=== PATIENT | male | born 1965 | race Caucasian/White ===

== ENCOUNTER 2024-04-16 15:00 | Outpatient (CLI) | payer MEDICAID, SELFPAY ==
[2024-04-16 18:40] LABS: Basophils % 0.6 % (0.1-2.0); Eosinophils # 0.2 K/mm3 (0.0-0.4); Eosinophils % 2.9 % (0.1-12.0); Hematocrit 49.5 % (42.0-52.0); Hemoglobin 16.2 g/dL (14.1-18.0); Lymphocytes # 2.1 K/mm3 (0.7-4.5); Lymphocytes % 30.5 % (10-50); Mean Corpuscular HGB Conc 32.7 g/dL (31.8-35.4); Mean Corpuscular Hemoglobin 30.8 pg (27.0-31.2); Mean Corpuscular Volume 94.1 fl (80-94); Mean Platelet Volume 8.7 fl (7.4-10.4); Monocytes # 0.3 K/mm3 (0.1-1.0); Monocytes % 4.5 % (1.7-9.3); Neutrophils # 4.2 K/mm3 (1.8-7.8); Neutrophils % 61.6 % (37.0-80.0); Platelet Count 227 K/mm3 (142-424); Red Blood Count 5.26 M/mm3 (4.60-6.20); Red Cell Distribution Width 14.3 % (11.5-17.5); White Blood Count 6.8 K/mm3 (4.8-10.8)
[2024-04-16 19:11] LABS: Alanine Aminotransferase 12 U/L (12-78); Albumin Level 3.8 g/dl (3.5-5.0); Albumin/Globulin Ratio 1.7 (1.1-1.8); Alkaline Phosphatase 52 U/L (38-126); Anion Gap 10.6 mEq/L (5-15); Aspartate Amino Transferase 20 U/L (17-59); Bilirubin,Total 0.4 mg/dl (0.2-1.3); Blood Urea Nitrogen 13 mg/dl (9-20); Calcium 8.5 mg/dl (8.4-10.2); Carbon Dioxide 29 mmol/L (22.0-30.0); Chloride 103 mmol/L (98-107); Estimated Glomerular Filt Rate 52 ml/min (>60); GFR (African American) 63 ML/MIN (>60); Globulin 2.3 g/dL (1.3-3.2); Glucose 91 mg/dl (74-100); HDL Cholesterol 36 mg/dl (40-60); Potassium 4.6 mmoL/L (3.5-5.1); Sodium 138 mmol/L (136-145); Total Protein,Serum 6.1 g/dl (6.3-8.2)
[2024-04-16 19:15] LABS: Chol/HDL Ratio 4.4 (1-3.5); Cholesterol 157 mg/dl (140-200); Triglycerides 130 mg/dl (30-150); VLDL Cholesterol 26 mg/dL (0-40)
[2024-04-16 19:22] LABS: C-Reactive Protein 11.4 mg/L (0-4); Direct LDL Cholesterol 109.83 mg/dL (100-129)
[2024-04-16 19:35] LABS: 25-OH Vitamin D, Total < 12.8 ng/mL (30-100)
[2024-04-16 19:36] LABS: Hemoglobin A1C 5.5 % (4.0-6.0)
[2024-04-16 19:44] LABS: Prostate Specific Ag Screen 0.6 ng/ml (0.0-4.0); Thyroid Stimulating Hormone 2.22 uIU/mL (0.465-4.68)
[2024-04-16 20:20] LABS: Vitamin B12 207 pg/mL (239-931)
[2024-04-16 20:21] LABS: Folate 2.27 ng/mL
[2024-04-16 21:13] LABS: HIV (1&2) Antibody Rapid NONREACTIVE (NONREACTIVE)
[2024-04-20 18:06] LABS: HBsAg Screen Negative (Negative); HCV Ab Reactive (Non Reactive); Hep A Ab, IGM Negative (Negative); Hep B Core Ab, IgM Negative (Negative)
== END 2024-04-16 23:59 | disposition home or self-care (01) ==
LOC: LAB.DROPOF 04-17 09:25
PROVIDERS: PCP Internal Medicine; Visit Provider Internal Medicine
DX: Z00.00 Encounter for general adult medical examination without abnormal findings (principal); Z91.89 Other specified personal risk factors, not elsewhere classified; E66.01 Morbid (severe) obesity due to excess calories; Z68.42 Body mass index [BMI] 45.0-49.9, adult; R53.83 Other fatigue; Z12.5 Encounter for screening for malignant neoplasm of prostate; Z13.1 Encounter for screening for diabetes mellitus; F11.90 Opioid use, unspecified, uncomplicated
CPT/HCPCS: 80050; 80053; 80061; 80074; 82306; 82607; 82746; 83036; 84443; 85025; 86140; 87389; G0103

== ENCOUNTER 2024-06-18 15:38 | Outpatient (CLI) | payer MEDICAID, SELFPAY ==
--- NOTE | 2024-06-18 15:39 | CT_ITS ---
FINAL REPORT TECHNIQUE: Axial CT images of the chest were obtained without contrast. Coronal and sagittal reconstructed images were obtained and reviewed. Low-dose protocol was utilized. This study was performed with techniques to keep radiation doses as low as reasonably achievable (ALARA). Individualized dose reduction techniques using automated exposure control or adjustment of mA and/or kV according to the patient's size were employed. CLINICAL HISTORY: lung cancer screening current smoker 2-3 cigarettes per day x 30+ years COMPARISON: None FINDINGS: CT CHEST LOW DOSE SCREENING DOSE: CTDIvol: 2.9 mGy, DLP: 111.51 mGy*cm No acute lung disease is present . There is an oval nodule in the right lower lobe measuring 10 x 8 mm seen on image #52. There is a small area of ground-glass opacity within the left lateral portion of the peripheral left upper lobe seen on image #32, probably scarring or inflammatory. No pleural or pericardial effusion is seen . No adenopathy or mass lesion is present . Gynecomastia is noted. IMPRESSION: Right lower lobe nodule. LUNG RADS CATEGORY 4B RECOMMENDATION: PET/CT Reviewed, Interpreted and Dictated by Radu Webber MD Transcribed by Jyotsna Hairston Authenticated and . [facility]
== END 2024-06-18 23:59 | disposition home or self-care (01) ==
LOC: RAD 15:39
PROVIDERS: PCP Internal Medicine; Visit Provider Internal Medicine
DX: F17.210 Nicotine dependence, cigarettes, uncomplicated (principal)
CPT/HCPCS: 71271

== ENCOUNTER 2024-10-29 09:19 | Outpatient (CLI) | payer MEDICAID, SELFPAY ==
--- OUTSIDE RECORDS SUMMARY | 2024-10-16 19:50 | XMS_ITS | Encounter Summary ---
Author Organization [employer] Address [address] [place] [id number] Care Team Providers Care Manager Strategic Development Name Role Phone Herminio Prather DO Primary Care Provider [phone] Reason for Visit * Reason Comments Shortness of Breath Pt c/o SOA and produ ctive cough x 4 days. Pt reports he fell yesterday from coughing so hard he passed out Encounter Details Date Type Department Care Team (Late st Contact Info) Description 10/16/2024 7:50 PM EDT - 10/16/2024 10:22 PM EDT Emergency [facility] Emergency Department [address] [place] [id number] [place] [address] [place], [place] [id number] Bronchitis (Primary Dx); Syncope, unspecified syncope type; Bradycardia; Abrasion; Sprain and strain; Chronic kidney disease, unspecified CKD stage; Chronic pansinusitis Discharge Disposition: Left Against Medical Advice Social History Tobacco Use Types Packs/Day Years Used Date Smoking Tobacco: Every Day Cigarettes Smokeless Tobacco: Never Alcohol Use Standard Drinks/Week Comments Never 0 (1 standard drink = 0.6 oz pur e alcohol) Sex and Gender Information Value Date Recorded Sex Assigned at Male 11/07/2021 11:00 AM CDT Legal Sex Male 11:00 AM CDT Gender Identity Male 11/07/2021 11:00 AM CDT Sexual Orientation Not on file documented as of this encounter Last Filed Vital Signs Vital Sign Reading Time Taken Comments Blood Pressure 151/70 10/16/2024 8:55 PM EDT Pulse 62 10/16/2024 9:30 PM EDT Temperature 36.8 C (98.2 F) 10/16/2024 7:46 PM EDT Respiratory Rate 23 10/16/2024 7:45 PM EDT Oxygen Saturation 96% 10/16/2024 9:30 PM EDT Inhaled Oxygen Concentration - - Weight 122.5 kg (270 lb) 10/16/2024 7:45 PM EDT Height 170.2 cm (5' 7 ) 10/16/2024 7:45 PM EDT Body Mass Index 42.29 10/16/2024 7:45 PM EDT documented in this encounter Discharge Instructions * Discharge Instructions* Dedra Mart MD - 10/16/2024 9:57 PM EDT Please return as soon as you can. You are at high risk of severe injury (neck fracture, paralysis, other fracture. You are at high risk of severe heart arrythymia (beating badly) which could kill you You MUST NOT DRIVE until you are cleared by a heart Dr. documented in this encounter Medications at Time of Discharge benzonatate (TESSALON) 200 MG capsule Take 1 capsule (200 mg total) by mouth 3 (three) times daily as needed for cough for up to 7 days. 20 capsule 10/16/2024 10/23/2024 documented as of this encounter ED Notes * Dedra Mart MD - 10/16/2024 7:43 PM EDT Images from the original note were not included. Subjective Chief Complaint: Shortness of Breath (Pt c/o SOA and productive cough x 4 days. Pt reports he fell yesterday from coughing so hard he passed out ) Patient is a 59-year-old male here today for cough and injuries after a fall. He notes a cough thatis intermittently productive for the past 4-5 days. Last night he had a syncopal episode provoked by excessive coughing. He injured his face, neck, right wrist, and left knee. Has contusion so his nose and forehead. Notes his neck is sore, right wrist hurts to use with his walker, and pain when bear ing weight on his left knee. Use the walker for arthritic pain to his right hip. Denies current chest pain. Patient History Past Medical History: Diagnosis Date CHF (congestive heart failure) ([facility]) Chronic pain COPD (chronic obstructive pulmonary disease) ([facility]) Past Surgical History: Procedure Laterality Date JOINT REPLACEMENT No family history on file. Social History Tobacco Use Smoking status: Every Day Types: Cigarettes Smokeless tobacco: Never Substance Use Topics Alcohol use: Never I reviewed the HPI, ROS and PFSH documentation recorded by others in the medical record and supplemented my note as needed. Review of Systems Review of Systems All other systems reviewed and are negative. Physical Exam Vitals: 10/16/24 2115 10/16/240 10/16/24212410/16/242129 BP: Pulse: 58 68 72 62 Resp: Temp: SpO2: 95% 92% 95% 96% Weight: Height: Physical Exam Vitals and nursing note reviewed. Constitutional: General: He is not in acute distress. Appearance: He is well-developed and normal weight. He is not ill-appearing or toxic-appearing. Interventions: He is not intubated. HENT: Head: Normocephalic. Contusion present. Nose: Nose normal. Comments: No septal hematoma Abrasions noted Neck: Comments: No midline tenderness Cardiovascular: Rate and Rhythm: Normal rate and regular rhythm. Pulses: Normal pulses. Heart sounds: Normal heart sounds. Pulmonary: Effort: Pulmonary effort is normal. No bradypnea, accessory muscle usage or respiratory distress. He is not intubated. Breath sounds: Normal breath sounds. No stridor. No decreased breath sounds. Comments: + harsh cough Abdominal: General: Abdomen is flat. Bowel sounds are normal. There is no distension. Palpations: Abdomen is soft. Tenderness: There is no abdominal tenderness. Musculoskeletal: General: Normal range of motion. Right wrist: Tenderness present. Cervical back: Neck supple. No rigidity or tenderness. Left knee: Tenderness present. Skin: General: Skin is warm and dry. Capillary Refill: Capillary refill takes less than 2 seconds. Comments: Abrasions on face (nose and forehead) with eschar Neurological: General: No focal deficit present. Mental Status: He is alert and oriented to person, place, and time. Psychiatric: Mood and Affect: Mood normal. Behavior: Behavior normal. Neurological Exam Mental Status Alert. Oriented to person, place, and time. Ortho Exam ED Course & MDM Medications sodium chloride flush 10 mL (has no administration in time range) benzonatate (TESSALON) capsule 200 mg (has no administration in time range) Results for orders placed or performed during the hospital encounter of 10/16/24 CBC with automated diff Result Value Ref Range WBC 9.2 (H) 4.2 - 9.1 K/??L RBC 4.75 4.63 - 6.08 M/??L Hemoglobin 14.6 13.7 - 17.5 GM/DL Hematocrit 43.3 40.1 - 51.0 % MCV 91 79 - 92 fL MCH 30.7 25.7 - 32.2 pg MCHC 33.7 32.3 - 36.5 GM/DL RDW 13.4 11.6 - 14.4 % Platelets 277 140 - 375 K/CU MM MPV 9.4 9.4 - 12.4 fL % Neutros 66 34 - 68 % % Lymphs 24 22 - 53 % % Monos 5 5 - 12 % % Eos 3 1 - 7 % % Baso 0 0 - 1 % NRBC Absolute <0.01 0 - 0.012 K/ul # Neutros 6.10 (H) 1.78 - 5.38 K/??L # Lymphs 2.25 1.32 - 3.57 K/??L # Monos 0.49 0.30 - 0.82 K/??L # Eos 0.25 0.04 - 0.54 K/??L # Baso 0.03 0.01 - 0.08 K/??L Immature Granulocytes-Relative 1.10 (H) 0.01 - 0.43 % # IG 0.10 (H) 0.00 - 0.03 K/uL Comprehensive metabolic panel Result Value Ref Range Sodium 134 (L) 136 - 145 meq/L Potassium 3.8 3.4 - 5.1 meq/L Chloride 101 98 - 112 meq/L CO2 25 22 - 29 meq/L Calcium 8.5 8.4 - 10.2 mg/dL Glucose 104 82 - 115 mg/dL BUN 12.2 8.4 - 25.7 mg/dL Creatinine 1.39 (H) 0.72 - 1.25 mg/dL BUN/Creatinine 9 8 - 20 eGFR (mL/min/1.73m2) 58 (L) >=60 mL/min/1.73m2 Albumin 3.0 (L) 3.5 - 5.0 g/dL Alkaline Phosphatase 52 40 - 150 U/L ALT 8 <=45 U/L AST 15 11 - 34 U/L Total Bilirubin 0.5 0.2 - 1.2 mg/dL Protein, Total 7.5 6.4 - 8.3 g/dL Globulin 4.5 (H) 2.5 - 4.1 g/dL Anion Gap 12 4 - 12 A/G Ratio 0.7 0.7 - 1.9 Osmolality Calc 268.4 mOsm/kg Magnesium Result Value Ref Range Magnesium 2.2 1.6 - 2.6 mg/dL High Sensitivity Troponin I Result Value Ref Range Troponin I High Sensitivity (pg/mL) <5.0 <=35 pg/mL Lactic Acid with reflex (SJ) Result Value Ref Range Lactic Acid Level (mmol/L) 0.9 0.5 - 2.2 mmol/L XR chest 1 view portable / bedside Final Result Unremarkable portable chest. XR wrist 2 views right Final Result Degenerative changes. No acute bony abnormality. Images reviewed, interpreted, and dictated by Jose Webber MD XR KNEE 3 VIEWS LEFT Non-Weight Bearing Final Result Degenerative changes. No acute bony abnormality. Images reviewed, interpreted, and dictated by Jose Webber MD CT maxillofacial without IV contrast Final Result 1. Chronic appearing mildly displaced right nasal fracture. 2. No definite acute facial fracture. 3. Chronic pansinusitis. This study was performed using dose reduction techniques to achieve radiation exposure as low as reasonably achievable (ALARA). Images reviewed, interpreted, and dictated by Jose Webber MD CT cervical spine without contrast Final Result Negative CT evaluation of the cervical spine for acute bony injury. Moderate diffuse degenerative changes. This study was performed using dose reduction techniques to achieve radiation exposure as low as reasonably achievable (ALARA). Images reviewed, interpreted, and dictated by Jose Webber MD CT brain without IV contrast Final Result 1. No acute intracranial abnormality. 2. Chronic sinusitis greater on the left. This study was performed using dose reduction techniques to achieve radiation exposure as low as reasonably achievable (ALARA) Images reviewed, interpreted, and dictated by Jose Webber MD Procedures Medical Decision Making Diff dx: dysrhythmia, vagal syncope, bradycardia, abrasions, contusions cervical inj, pneumonia, bronchitis, CHF, electrolyte imbalance, poor social situation MDM Pt had a bradycardic episode here to 37 NOT associated with coughing or syncope He has syncope sitting This makes him much higher risk He drove himself here! Pt refuses to stay I tried for over 10 minutes to get him to stay He has a poor social situation, he has a dog someone else has the dog right now but he does not feel the dog is being properly watched etc He told me he would not drive. He could call some one to get him. I have STRESSED NO DRIVING Amount and/or Complexity of Data Reviewed Labs: ordered. Radiology: ordered and independent interpretation performed. Decision-making details documented in ED Course. Details: CXR no dense inf Wrist x ray djd CT neck djd, no fx CT face sinusitis L >R Head st no large bleed ECG/medicine tests: independent interpretation performed. Details: SR rate 86 Low voltage (old) Qtc nl No STEMI No sig change from 05/05 Risk Prescription drug management. Assessment & Plan Clinical Impression Diagnosis Comment Added By Time Added Bronchitis Dedra Mart MD 10/16/2024 10:01 PM Syncope, unspecified syncope type Dedra Mart MD 10/16/2024 10:01 PM Bradycardia Dedra Mart MD 10/16/2024 10:02 PM Abrasion Dedra Mart MD 10/16/2024 10:02 PM Sprain and strain R wrist, L knee, neck Dedra Mart MD 10/16/2024 10:02 PM Chronic kidney disease, unspecified CKD stage Dedra Mart MD 10/16/2024 10:05 PM Chronic pansinusitis Dedra Mart MD 10/16/2024 10:06 PM Disposition AMA [4] - 10/16/2024 9:56 PM New Prescriptions BENZONATATE (TESSALON) 200 MG CAPSULE Take 1 capsule (200 mg total) by mouth 3 (three) times daily as needed for cough for up to 7 days. Electronically Signed By Dedra Mart MD 10/16/242211 documented in this encounter Plan of Treatment Not on file documented as of this encounter Procedures Procedure Name Priority Date/Time Associated Diagnosis Comments BLOOD CULTURE STAT 10/16/2024 9:29 PM EDT LACTIC ACID WITH REFLEX STAT 10/16/2024 9:22 PM EDT BLOOD CULTURE STAT 10/16/2024 9:22 PM EDT CBC W/ AUTO DIFF STAT 10/16/2024 8:41 PM EDT HIGH SENSITIVITY TROPONIN I STAT 10/16/2024 8:41 PM EDT PROBNP Add-On 10/16/2024 8:41 PM EDT MAGNESIUM STAT 10/16/2024 8:41 PM EDT COMPREHENSIVE METABOLIC PANEL STAT 10/16/2024 8:41 PM EDT XR WRIST 2 VIEWS RIGHT STAT 8:31 PM EDT XR CHEST 1 VIEW PORTABLE / BEDSIDE STAT 10/16/2024 8:31 PM EDT XR KNEE 3 VIEWS LEFT STAT 10/16/2024 8:[address] MAXILLOFACIAL WITHOUT IV CONTRAST STAT 10/16/2024 8:[address] CERVICAL SPINE WITHOUT IV CONTRAST STAT 10/16/2024 8:[address] BRAIN WITHOUT IV CONTRAST STAT 10/16/2024 8:09 PM EDT EKG-SCANNED 10/16/2024 documented in this encounter Results * Blood Culture (10/16/2024 9:29 PM EDT) Result No growth in 5 days 10/21/2024 7:12 AM EDT [facility] Blood Venipuncture / Unknown 10/16/2024 9:29 PM EDT 10/16/2024 9:37 PM EDT us Dedra Mart MD MICROBIOLOGY - GENERAL ORDERABLE S Final Result Performing Organization Address [facility]/ZIP Co de Phone Number [facility] [address] [phone] * Blood Culture (10/16/2024 9:22 PM EDT) Result No growth in 5 days 10/21/2024 10:02 PM EDT [facility] Blood Venipuncture / Unknown 10/16/2024 9:22 PM EDT 10/16/2024 9:36 PM EDT us Dedra Mart MD MICROBIOLOGY - GENERAL ORDERABLE S Final Result Performing Organization Address [facility] Co de Phone Number [facility] [address] [phone] * Lactic Acid with reflex (SJ) (10/16/2024 9:22 PM EDT) Lactic Acid Level (mmol/L) 0.9 0.5 - 2.2 mmol/L 10/16/2024 10:03 PM EDT [facility] Blood Venipuncture / Unknown 10/16/2024 9:22 PM EDT 10/16/2024 9:37 PM EDT us Dedra Mart MD LAB BLOOD ORDERABLES Final Resul t Performing Organization Address City/[facility]/ZIP Co de Phone Number [facility] [address] [phone] * PROBNP (10/16/2024 8:41 PM EDT) ProBNP (pg/mL) 65 16 - 452 pg/mL 10/16/2024 10:55 PM EDT [facility] Blood Venipuncture / Unknown 10/16/2024 8:41 PM EDT 10/16/2024 8:57 PM EDT Narrative [facility] - 10/16/2024 10:55 PM EDT As of October 01, 2024: NT-ProBNP is a new test on our [employer] Alinity Immunoassay analyzer. Please review new age and gender specific reference ranges. us Dedra Mart MD LAB BLOOD ORDERABLES Final Resul t Performing Organization Address [facility] Co de Phone Number [facility] [address] [phone] * High Sensitivity Troponin I (10/16/2024 8:41 PM EDT) Troponin I High Sensitivity (pg/mL) <5.0 <=35 pg/mL 10/16/2024 9:28 PM EDT [facility] Blood Venipuncture / Unknown 10/16/2024 8:41 PM EDT 10/16/2024 8:57 PM EDT Narrative [facility] - 10/16/2024 9:28 PM EDT Applicable to [facility] only. Effective August 04 the lab will begin using a new chemistry analyzer. HsTroponin methodology, reference ranges and critical values have changed. us Henry Chaidez APRN LAB BLOOD ORDERABLES Final Resu lt Performing Organization Address [facility] Co de Phone Number [facility] [address] [phone] * Magnesium (10/16/2024 8:41 PM EDT) [facility] Magnesium 2.2 1.6 - 2.6 mg/dL 10/16/2024 9:23 PM EDT [facility] Blood Venipuncture / Unknown 10/16/2024 8:41 PM EDT 10/16/2024 8:57 PM EDT us Henry Chaidez APRN LAB BLOOD ORDERABLES Final Resu lt Performing Organization Address City/[facility]/ZIP Co de Phone Number [facility] [address] [phone] * (ABNORMAL) Comprehensive metabolic panel (10/16/2024 8:41 PM EDT) Sodium 134(L) 136 - 145 meq/L 10/16/2024 9:23 PM T [facility] Potassium 3.8 3.4 - 5.1 meq/L 10/16/2024 9:23 PM [facility] Chloride 101 98 - 112 meq/L 10/16/2024 9:23 PM [facility] CO2 25 22 - 29 meq/L 10/16/2024 9:23 PM [facility] Calcium 8.5 8.4 - 10.2 mg/dL 10/16/2024 9:23 PM [facility] Glucose 104 82 - 115 mg/dL 10/16/2024 9:23 PM [facility] BUN 12.2 8.4 - 25.7 mg/dL 10/16/2024 9:23 PM [facility] Creatinine 1.39(H) 0.72 - 1.25 mg/dL 10/16/2024 9:23 PM [facility] BUN/Creatinine 9 8 - 20 10/16/2024 9:23 PM [facility] eGFR (mL/min/1.73m2) 58(L) >=60 mL/min/1. 73m2 10/16/2024 9:23 PM [facility] Albumin 3.0(L) 3.5 - 5.0 g/dL 10/16/2024 9:23 PM [facility] Alkaline Phosphatase 52 40 - 150 U/L 10/16/2024 9:23 PM [facility] ALT 8 <=45 U/L 10/16/2024 9:23 PM [facility] Comment: ALT2 reagent used for testing does not contain P5P supplementation and therefore may miss ALT elevations in patients with B6 deficiency. This population may be as high as 10% in the [place], with risk factors including malabsorption, drug interactions, and alcoholic hepatitis. AST 15 11 - 34 U/L 10/16/2024 9:23 PM [facility] Comment: AST2 reagent used for testing does not contain P5P supplementation and therefore may miss AST elevations in patients with B6 deficiency. This population may be as high as 10% in the [place], with risk factors including malabsorption, drug interactions, and alcoholic hepatitis. Total Bilirubin 0.5 0.2 - 1.2 mg/dL 10/16/2024 9:23 PM EDT [facility] Protein, Total 7.5 6.4 - 8.3 g/dL 10/16/2024 9:23 PM EDT [facility] Globulin 4.5(H) 2.5 - 4.1 g/dL 10/16/2024 9:23 PM EDT [facility] Anion Gap 12 4 - 12 10/16/2024 9:23 PM EDT [facility] A/G Ratio 0.7 0.7 - 1.9 10/16/2024 9:23 PM EDT [facility] Osmolality Calc 268.4 mOsm/kg 9:23 PM EDT [facility] Blood Venipuncture / Unknown 10/16/2024 8:41 PM EDT 10/16/2024 8:57 PM EDT us Henry Chaidez APRN LAB BLOOD ORDERABLES Final Resu lt [facility] [address] [phone] * (ABNORMAL) CBC with automated diff (10/16/2024 8:41 PM EDT) WBC 9.2(H) 4.2 - 9.1 K/ L 10/16/2024 8:59 PM EDT [facility] RBC 4.75 4.63 - 6.08 M/ L 10/16/2024 8:59 PM EDT [facility] Hemoglobin 14.6 13.7 - 17.5 GM/DL 10/16/2024 8:59 PM EDT [facility] Hematocrit 43.3 40.1 - 51.0 % 10/16/2024 8:59 PM EDT [facility] MCV 91 79 - 92 fL 10/16/2024 8:59 PM EDT [facility] MCH 30.7 25.7 - 32.2 pg 10/16/2024 8:59 PM EDT [facility] MCHC 33.7 32.3 - 36.5 GM/DL 10/16/2024 8:59 PM EDT [facility] RDW 13.4 11.6 - 14.4 % 10/16/2024 8:59 PM EDT [facility] Platelets 277 140 - 375 K/CU MM 10/16/2024 8:59 PM EDT [facility] MPV 9.4 9.4 - 12.4 fL 10/16/2024 8:59 PM EDT [facility] % Neutros 66 34 - 68 % 10/16/2024 8:59 PM EDT [facility] % Lymphs 24 22 - 53 % 10/16/2024 8:59 PM EDT [facility] % Monos 5 5 - 12 % 10/16/2024 8:59 PM EDT [facility] % Eos 3 1 - 7 % 10/16/2024 8:59 PM EDT [facility] % Baso 0 0 - 1 % 10/16/2024 8:59 PM EDT [facility] NRBC Absolute <0.01 0 - 0.012 K/ul 10/16/2024 8:59 PM EDT [facility] # Neutros 6.10(H) 1.78 - 5.38 K/ L 10/16/2024 8:59 PM EDT [facility] # Lymphs 2.25 1.32 - 3.57 K/ L 10/16/2024 8:59 PM EDT [facility] # Monos 0.49 0.30 - 0.82 K/ L 10/16/2024 8:59 PM EDT [facility] # Eos 0.25 0.04 - 0.54 K/ L 10/16/2024 8:59 PM EDT [facility] # Baso 0.03 0.01 - 0.08 K/ L 10/16/2024 8:59 PM EDT [facility] Immature Granulocytes-Re lative 1.10(H) 0.01 - 0.43 % 10/16/2024 8:59 PM EDT [facility] # IG 0.10(H) 0.00 - 0.03 K/uL 10/16/2024 8:59 PM EDT [facility] Blood Venipuncture / Unknown 10/16/2024 8:41 PM EDT 10/16/2024 8:57 PM EDT Narrative [facility] - 10/16/2024 8:59 PM EDT When CBC w/ Auto Diff is ordered the lab will add a Manual Differential as a quality check at no additional charge if: Lymphocytes greater than seventy five percent with normal or increased WBC Monocytes greater than Fifteen percent Basophil greater than four percent Bands >10% or several immature myeloids are seen on scan Blast? Flag noted Atypical Lymph flag noted Henry Chaidez APRN LAB BLOOD ORDERABLES Final Resu lt [facility] [address] [phone] * XR wrist 2 views right (10/16/2024 8:31 PM EDT) Anatomical Region Laterality Modality Wrist X-Ray 10/16/2024 9:32 PM EDT Impressions 10/16/2024 9:32 PM EDT Degenerative changes. No acute bony abnormality. Images reviewed, interpreted, and dictated by Jose Webber MD Narrative 10/16/2024 9:32 PM EDT RIGHT WRIST 2 VIEW HISTORY: Pain FINDINGS: Two views show no evidence of an acute, displaced fracture or dislocation of the visualized bony architecture. Mild degenerative joint disease is present. Procedure Note Jose Webber MD - 10/16/2024 RIGHT WRIST 2 VIEW HISTORY: Pain FINDINGS: Two views show no evidence of an acute, displaced fracture or dislocation of the visualized bony architecture. Mild degenerative joint disease is present. IMPRESSION: Degenerative changes. No acute bony abnormality. Images reviewed, interpreted, and dictated by Jose Webber MD Henry Chaidez APRN IMG DIAGNOSTIC IMAGING ORDERABL ES Final Result * XR chest 1 view portable / bedside (10/16/2024 8:31 PM EDT) Anatomical Region Laterality Modality X-Ray 10/16/2024 9:49 PM EDT Impressions 10/16/2024 9:49 PM EDT Unremarkable portable chest. Narrative 10/16/2024 9:49 PM EDT CHEST ONE VIEW HISTORY: Shortness of breath COMPARISON: 05/02/2024 FINDINGS: Portable view of the chest demonstrates the lungs to be grossly clear. There is no evidence of effusion, pneumothorax or other significant pleural disease. The mediastinum is unremarkable. The heart size is normal. Procedure Note Jose Webber MD - 10/16/2024 CHEST ONE VIEW HISTORY: Shortness of breath COMPARISON: 05/02/2024 FINDINGS: Portable view of the chest demonstrates the lungs to be grossly clear. There is no evidence of effusion, pneumothorax or other significant pleural disease. The mediastinum is unremarkable. The heart size is normal. IMPRESSION: Unremarkable portable chest. Henry Chaidez [facility] ES Final Result * XR KNEE 3 VIEWS LEFT Non-Weight Bearing (10/16/2024 8:29 PM EDT) Anatomical Region Laterality Modality Knee X-Ray 10/16/2024 9:28 PM EDT Impressions 10/16/2024 9:30 PM EDT Degenerative changes. No acute bony abnormality. Images reviewed, interpreted, and dictated by Jose Webber MD Narrative 10/16/2024 9:30 PM EDT LEFT KNEE THREE VIEWS HISTORY: Pain. FINDINGS: Three views show no evidence of an acute, displaced fracture or dislocation of the visualized bony architecture. Severe tricompartment degenerative joint disease is present. Small joint effusion is noted. Procedure Note Jose Webber MD - 10/16/2024 LEFT KNEE THREE VIEWS HISTORY: Pain. FINDINGS: Three views show no evidence of an acute, displaced fracture or dislocation of the visualized bony architecture. Severe tricompartment degenerative joint disease is present. Small joint effusion is noted. IMPRESSION: Degenerative changes. No acute bony abnormality. Images reviewed, interpreted, and dictated by Jose Webber MD Henry Chaidez APRN [facility] ORDERABL ES Final Result * CT maxillofacial without IV contrast (10/16/2024 8:10 PM EDT) Anatomical Region Laterality Modality Computed Tomogra phy (CT) 10/16/2024 8:48 PM EDT Impressions 10/16/2024 8:55 PM EDT 1. Chronic appearing mildly displaced right nasal fracture. 2. No definite acute facial fracture. 3. Chronic pansinusitis. This study was performed using dose reduction techniques to achieve radiation exposure as low as reasonably achievable (ALARA). Images reviewed, interpreted, and dictated by Jose Webber MD Narrative 10/16/2024 8:[address] FACE HISTORY: Facial trauma, blunt, pain. TECHNIQUE: Thin section axial CT with coronal reconstructions. FINDINGS: Right nasal fracture is seen, favor chronic. No fracture is seen of the maxillary sinuses or orbits. TMJs are intact. Pansinusitis is present having a chronic appearance, greater on left. Procedure Note Jose Webber MD - 10/16/2024 CT FACE HISTORY: Facial trauma, blunt, pain. TECHNIQUE: Thin section axial CT with coronal reconstructions. FINDINGS: Right nasal fracture is seen, favor chronic. No fracture is seen of the maxillary sinuses or orbits. TMJs are intact. Pansinusitis is present having a chronic appearance, greater on left. IMPRESSION: 1. Chronic appearing mildly displaced right nasal fracture. 2. No definite acute facial fracture. 3. Chronic pansinusitis. This study was performed using dose reduction techniques to achieve radiation exposure as low as reasonably achievable (ALARA). Images reviewed, interpreted, and dictated by Jose Webber MD Henry Chaidez APRN [facility] CT ORDERABLES Final Result * CT cervical spine without contrast (10/16/2024 8:10 PM EDT) Anatomical Region Laterality Modality C-spine, Neck Computed Tomogra phy (CT) 10/16/2024 8:44 PM EDT Impressions 10/16/2024 8:[address] evaluation of the cervical spine for acute bony injury. Moderate diffuse degenerative changes. This study was performed using dose reduction techniques to achieve radiation exposure as low as reasonably achievable (ALARA). Images reviewed, interpreted, and dictated by Jose Webber MD Narrative 10/16/2024 8:[address] CERVICAL SPINE HISTORY: Neck trauma, uncomplicated (NEXUS/CCR neg) (Age 16-64y), pain. TECHNIQUE: Thin section axial CT with sagittal and coronal reconstructions. FINDINGS: No fracture is present. Alignment is normal. No bony canal stenosis is seen. Moderate spondylosis and multilevel degenerative disc disease is noted. Multilevel bony neural foraminal narrowing is seen. Procedure Note Jose Webber MD - 10/16/2024 CT CERVICAL SPINE HISTORY: Neck trauma, uncomplicated (NEXUS/CCR neg) (Age 16-64y), pain. TECHNIQUE: Thin section axial CT with sagittal and coronal reconstructions. FINDINGS: No fracture is present. Alignment is normal. No bony canal stenosis is seen. Moderate spondylosis and multilevel degenerative disc disease is noted. Multilevel bony neural foraminal narrowing is seen. IMPRESSION: Negative CT evaluation of the cervical spine for acute bony injury. Moderate diffuse degenerative changes. This study was performed using dose reduction techniques to achieve radiation exposure as low as reasonably achievable (ALARA). Images reviewed, interpreted, and dictated by Jose Webber MD Henry Chaidez APRN [facility] [place] Final Result * CT brain without IV contrast (10/16/2024 8:09 PM EDT) Anatomical Region Laterality Modality Brain, Head Computed Tomogra phy (CT) 10/16/2024 8:37 PM EDT Impressions 10/16/2024 8:42 PM EDT 1. No acute intracranial abnormality. 2. Chronic sinusitis greater on the left. This study was performed using dose reduction techniques to achieve radiation exposure as low as reasonably achievable (ALARA) Images reviewed, interpreted, and dictated by Jose Webber MD Narrative 10/16/2024 8:[address] HEAD WITHOUT CONTRAST HISTORY: Syncope. TECHNIQUE: Noncontrast exam FINDINGS: Brain parenchyma is homogeneous without evidence of hemorrhage, mass effect or edema. No extra-axial abnormality is noted. Ventricles and cisterns appear normal. Chronic left maxillary and bilateral ethmoid sinusitis is present. Chronic left frontal sinusitis is noted. Procedure Note Jose Webber MD - 10/16/2024 CT HEAD WITHOUT CONTRAST HISTORY: Syncope. TECHNIQUE: Noncontrast exam FINDINGS: Brain parenchyma is homogeneous without evidence of hemorrhage, mass effect or edema. No extra-axial abnormality is noted. Ventricles and cisterns appear normal. Chronic left maxillary and bilateral ethmoid sinusitis is present. Chronic left frontal sinusitis is noted. IMPRESSION: 1. No acute intracranial abnormality. 2. Chronic sinusitis greater on the left. This study was performed using dose reduction techniques to achieve radiation exposure as low as reasonably achievable (ALARA) Images reviewed, interpreted, and dictated by Jose Webber MD Henry Chaidez APRN IMG CT ORDERABLES Final Result * EKG-SCANNED (10/16/2024) Narrative 10/16/2024 Ordered by an unspecified provider. us Default Scanning Provider SCAN ORDERS Final Result documented in this encounter Visit Diagnoses Diagnosis Bronchitis- Primary Bronchitis, not specified as acute or chronic Syncope, unspecified syncope type Bradycardia Other specified cardiac dysrhythmias Abrasion Abrasion or friction burn of other, multiple, and unspecified sites, without mention of infection Sprain and strain Unspecified site of sprain and strain Chronic kidney disease, unspecified CKD stage Chronic pansinusitis Other chronic sinusitis documented in this encounter Administered Medications Inactive Administered Medications - up to 3 most recent administrations Medication Order MAR Action Action Date Dose Rate Site benzonatate (TESSALON) capsule 200 mg 200 mg Once, oral, On Sat10/16/24 at 2205, For 1 dose Given 10/16/2024 10:14 PM EDT 200 mg sodium chloride flush 10 mL 10 mL As needed, intravenous, line care, Line care, Starting on Sat10/16/24 at 1944 documented in this encounter Active and Recently Administered Medications Times are shown in EDT. Scheduled Medication Order 10/14/2024 10/15/202410/1610/16/2024 benzonatate (TESSALON) capsule 200 mg (COMPLETED) 200 mg Once, oral, On Sat10/16/24 at 2205, For 1 dose 2214 (Given - Provid er: Jolene Bolton RN) PRN Medication Order 10/14/2024 10/15/2024 10/16/2024 sodium chloride flush 10 mL 10 mL As needed, intravenous, line care, Line care, Starting on Sat10/16/24 at 1944 documented in this encounter Care Teams Manager Strategic Development Relationship Specialty Start Date End Date Herminio Prather DO PCP - General Internal Medicine 05/02/24 documented as of this encounter
[2024-10-29 19:52] LABS: Alanine Aminotransferase 11 U/L (12-78); Albumin Level 3.9 g/dl (3.5-5.0); Albumin/Globulin Ratio 1.1 (1.1-1.8); Alkaline Phosphatase 64 U/L (38-126); Anion Gap 10.3 mEq/L (5-15); Aspartate Amino Transferase 17 U/L (17-59); Bilirubin,Total 0.9 mg/dl (0.2-1.3); Blood Urea Nitrogen 12 mg/dl (9-20); Calcium 9.1 mg/dl (8.4-10.2); Carbon Dioxide 29 mmol/L (22.0-30.0); Chloride 99 mmol/L (98-107); Estimated Glomerular Filt Rate 52 ml/min (>60); GFR (African American) 63 ML/MIN (>60); Globulin 3.6 g/dL (1.3-3.2); Glucose 100 mg/dl (74-100); Potassium 4.3 mmoL/L (3.5-5.1); Sodium 134 mmol/L (136-145); Total Protein,Serum 7.5 g/dl (6.3-8.2)
[2024-10-29 20:08] LABS: 25-OH Vitamin D, Total 18.6 ng/mL (30-100)
--- OUTSIDE RECORDS SUMMARY | 2024-11-02 09:29 | XMS_ITS | Encounter Summary ---
Author Organization [facility] Address [address] [place] [address] Care Team Providers Care Journeyman Power Plant Operator Name Role Phone Karishma Prather DO Primary Care Provider [phone] Encounter Details Date Type Department Care Team (Late st Contact Info) Description 08/25/2018 Transcribed Document [facility] Family Medicine [address] [place] [address] ProviderEugenio MD [address] [place] [id number] Social History Tobacco Use Types Packs/Day Years Used Date Smoking Tobacco: Never Assessed Sex and Gender Information Value Date Recorded Sex Assigned at Male 11/07/2021 11:00 AM CDT Legal Sex Male 11:00 AM CDT Gender Identity Male 11/07/2021 11:00 AM CDT Sexual Orientation Not on file documented as of this encounter Miscellaneous Notes * Cerner Conversion Note - Eugenio ProviderMD - 08/25/2018 5:09 PM CDT [address] [place] [address] PERSON INFORMATION Name YASIR HERNANDEZ Age 53 Years 1965 Sex Male Language Tajik PCP [address]EVI[address] Marital Status Med Service Emergency Medicine Acct# Arrival 08/25/2018 12:34:00 Visit Reason Rectal pain; Dysuria; DIFFICULTY URINATING/PAIN Acuity 3 - Urgent LOS 000 04:35 Depart Date: 00:00 AM Address: [facility] [place] [address] Comment: PROVIDER INFORMATION Provider Role Assigned Unassigned Jaqueline Chacon, RECRUITING SPECIALIST Nurse 08/25/2018 13:46:10 CISCO LAMAR DO ED Physician 08/25/2018 13:53:25 DIAGNOSIS Abscess, perirectal; Dysuria; Rectal pain PHYS DOC NOTES VITALS INFORMATION Vital Sign Triage Latest Temp Source Oral Oral Temp Mode Fahrenheit Fahrenheit Temp Fahrenheit 98.2 Deg F 98.2 Deg F Temp Celsius 02 Sat 95 % 95 % Respiratory Rate 24 Breaths/Min 24 Breaths/Min Peripheral Pulse Rate 101 bpm 101 bpm Apical Heart Rate Blood Pressure 133 mmHg / 73 mmHg 133 mmHg / 73 mmHg Comment: MEDICAL INFORMATION Allergy Info: penicillins Medications: Prescription Display acetaminophen-hydrocodone ([place] 10 mg-325 mg oral tablet) 1 Tab, Oral, Tab, Q6H, PRN for pain, X 3 Day(s), # 10 Tab, 0 Refill(s) ciprofloxacin (Cipro 500 mg oral tablet) 1 Tab, Oral, Tab, Q12H, X 10 Day(s), # 20 Tab, 0 Refill(s) metroNIDAZOLE (Flagyl 500 mg oral tablet) 1 Tab, Oral, Tab, Q8H, X 10 Day(s), # 30 Tab, 0 Refill(s) Comment: DISCHARGE INFORMATION Discharge Disposition: Discharge Location: PATIENT EDUCATION INFORMATION Instructions: Perirectal Abscess Follow up: With: Address: When: KARISHMA PIÑA [address] [place] [address], [address] [place] [address] Business (1) Within in AM Comments: [facility] is expecting you and will see you tomorrow. With: Address: When: NO [address] ORTEGA Within 2 to 3 days With: Address: When: [facility] Within 2 to 3 days Comments: Please contact the Patient Resource Center at if you need assistance finding a Primary Care Provider in the future. With: Address: When: FAMILY (REF) NO Within 2 to 3 days Comment: Electronically signed by Neville Herring Conversion [employer] Engraver Hand Melvinaner at 08/29/2022 9:40 PM CDT documented in this encounter Plan of Treatment Not on file documented as of this encounter Visit Diagnoses Not on filedocumented in this encounter Care Teams Journeyman Power Plant Operator Relationship Specialty Start Date End Date Karishma Prather DO PCP - General Internal Medicine 05/02/24 documented as of this encounter
--- OUTSIDE RECORDS SUMMARY | 2024-11-02 09:29 | XMS_ITS | Encounter Summary ---
Author Organization [facility] [email or web address] Address [address] [place] [address] Care Team Providers Care Router Operator Name Role Phone Herminio Prather DO Primary Care Provider [phone] Encounter Details Date Type Department Care Team (Late st Contact Info) Description 07/05/[address] [facility] [place] [facility] [place] [address] ProviderEugenio MD [address] [place] [address] Social History Tobacco Use Types Packs/Day Years Used Date Smoking Tobacco: Never Assessed Sex and Gender Information Value Date Recorded Sex Assigned at Male 11/07/2021 11:00 AM CDT Legal Sex Male 11:00 AM CDT Gender Identity Male 11/07/2021 11:00 AM CDT Sexual Orientation Not on file documented as of this encounter Miscellaneous Notes * Cerner Conversion Note - Eugenio ProviderMD - 07/05/2020 11:16 PM LEAD PRINCIPAL TECHNICAL ARCHITECT [facility] [place] [address] YASIR HERNANDEZ :1965 Visit Time:07/05/2020 Your Visit Summary Your Care Team Primary Provider: MIGEL JADE Secondary Provider: Your Diagnosis Bilateral leg edema Leg pain-swelling Medical Information You may obtain a copy of your Emergency Department visit from Medical Records by calling the hospital phone number listed above and asking to be directed to the Medical Records Department. If you had special tests, such as EKG???s or X-rays, the interpretation of your tests given to you by the Emergency Department Physician is a preliminary report. Some fractures and illnesses fail to show up on preliminary tests. These will be reviewed again and we will call you if there are any new suggestions. If your symptoms continue notify your physician. After you leave, you should follow the instructions provided. What to do next Follow-Up Appointments Follow Up with ARTHUR GUZMAN When Within 2 to 3 days Where: [place] [address]- Business (1) Follow Up with KASSIDY BYRD When Within 2 to 3 days Where: [facility] [address] [place] [address]- Business (1) Allergies penicillins (Hives, Hives) Immunizations This Visit No Immunizations Found Medications What How Much When Instructions Next Dose furosemide (Lasix 40 mg oral tablet) 1 Tablet(s) Oral Every Day Printed Prescription The home medications listed are only as accurate as the information you provided. Please continue taking all of your medications prescribed by your Primary Care Provider unless specifically told to change or discontinue the medication. Please direct any questions regarding your home medications to your Primary Care Provider. Take your medications faithfully. Do NOT skip medication. Do NOT stop taking medications without the direction of a physician. Carry a list of your medications with you at all times, and take this medication list with you to your first follow up visit. Report any side effects. Avoid herbal remedies unless discussed with your physician. As part of your treatment plan, your physician may have prescribed a limited course of a controlled substance. This medication may be given to help people with moderate or severe pain or for other medical conditions, but there are risks involved with treatment. Common side effects may include nausea, constipation, drowsiness, sweating, itching, dry mouth, and rash. More serious side effects may include cognitive and motor impairment, like problems with thinking, concentrating, alertness, and movement (e.g. slowed reflexes), and driving and operating heavy machinery can be dangerous. It is important for you to talk to your physician if you have these side effects or questions. These controlled substances can produce physical dependence and be habit-forming if taken for an extended period of time, which means that the body has gotten used to them and may experience withdrawal symptoms if they are abruptly stopped. Withdrawal symptoms can include runny nose, sweating, goose bumps, diarrhea, abdominal cramping, rapid heartbeat, difficulty sleeping, and nervousness. Please dispose of unused and medications per pharmacy guidance. Test Results Laboratory or Other Results This Visit (last charted value for your 07/05/2020 visit) Hematology 07/05/2020 10:06 PM WBC: 6.1 K/uL -- Normal range between ( 3.6 and 9.5 ) RBC: 4.43 Million/uL -- Normal range between ( 4.20 and 5.70 ) Hct: 39.2 % -- Normal range between ( 40.1 and 51.0 ) Hgb: 12.6 g/dL -- Normal range between ( 13.7 and 17.5 ) Platelet Count: 228 K/uL -- Normal range between ( 163 and 369 ) MCH: 28.4 pg -- Normal range between ( 25.6 and 32.2 ) MCHC: 32.1 Gram/dL -- Normal range between ( 31.5 and 35.7 ) MCV: 88.5 fL -- Normal range between ( 79.0 and 94.8 ) Slide Review: No Eos %: 5.6 % -- Normal range between ( 0.0 and 7.0 ) [place] #: 0.61 K/uL -- Normal range between ( 0.16 and 1.00 ) Eos #: 0.34 -- Normal range between ( 0.00 and 5.00 ) [place] %: 10.0 % -- Normal range between ( 3.5 and 11.1 ) Baso %: 2.3 % -- Normal range between ( 0.0 and 2.0 ) Baso #: 0.14 -- Normal range between ( 0.00 and 2.00 ) RDW: 15.3 % -- Normal range between ( 11.7 and 14.9 ) Neut %: 46.8 % -- Normal range between ( 34.0 and 71.0 ) Neut #: 2.84 K/uL -- Normal range between ( 1.60 and 7.00 ) Lymph %: 35.3 % -- Normal range between ( 19.3 and 53.1 ) Lymph #: 2.14 K/uL -- Normal range between ( 1.00 and 3.50 ) MPV: 9.3 fL -- Normal range between ( 9.4 and 12.4 ) General Chemistry 07/05/2020 10:06 PM Creatinine Level: 1.10 mg/dL -- Normal range between ( 0.70 and 1.30 ) Sodium Level: 133 mmol/L -- Normal range between ( 136 and 146 ) Potassium Level: 4.4 mmol/L -- Normal range between ( 3.5 and 5.1 ) Chloride Level: 102 mmol/L -- Normal range between ( 102 and 112 ) Carbon Dioxide Level: 28 mmol/L -- Normal range between ( 21 and 32 ) Anion Gap: 7 -- Normal range between ( 9 and 20 ) Bilirubin Total: 0.4 mg/dL -- Normal range between ( 0.2 and 1.2 ) A/G Ratio: 0.6 -- Normal range between ( 1.1 and 2.5 ) ALT: 30 Units/Liter -- Normal range between ( 16 and 61 ) AST: 35 Units/Liter -- Normal range between ( 5 and 37 ) Globulin: 4.8 Gram/dL -- Normal range between ( 1.5 and 4.5 ) Alk Phos: 72 Units/Liter -- Normal range between ( 27 and 136 ) Bun/Creatinine: 8.2 -- Normal range between ( 8.0 and 20.0 ) Calcium Level: 8.5 mg/dL -- Normal range between ( 8.4 and 10.1 ) eGFR : >60 mL/min/1.73m2 eGFR NonAfrican: >60 mL/min/1.73m2 Glucose Level: 105 mg/dL -- Normal range between ( 74 and 106 ) Blood Urea Nitrogen: 9 mg/dL -- Normal range between ( 7 and 22 ) Protein Total: 7.6 Gram/dL -- Normal range between ( 6.4 and 8.2 ) Albumin Level: 2.8 Gram/dL -- Normal range between ( 3.4 and 5.0 ) Cardiac Specific Markers 07/05/2020 10:06 PM ProBNP: 35 pg/mL -- Normal range between ( 0 and 125 ) Education Materials Peripheral Edema Peripheral edema is swelling that is caused by a buildup of fluid. Peripheral edema most often affects the lower legs, ankles, and feet. It can also develop in the arms, hands, and face. The area of the body that has peripheral edema will look swollen. It may also feel heavy or warm. Your clothes may start to feel tight. Pressing on the area may make a temporary dent in your skin. You may not be able to move your swollen arm or leg as much as usual. There are many causes of peripheral edema. It can happen because of a complication of other conditions such as congestive heart failure, kidney disease, or a problem with your blood circulation. It also can be a side effect of certain medicines or because of an infection. It often happens to women during . Sometimes, the cause is not known. Follow these instructions at home: Managing pain, stiffness, and swelling ??? Raise (elevate) your legs while you are sitting or lying down. ??? Move around often to prevent stiffness and to lessen swelling. ??? Do not sit or stand for long periods of time. ??? Wear support stockings as told by your health care provider. Medicines ??? Take oebs-tff-warxhrm and prescription medicines only as told by your health care provider. ??? Your health care provider may prescribe medicine to help your body get rid of excess water (diuretic). General instructions ??? Pay attention to any changes in your symptoms. ??? Follow instructions from your health care provider about limiting salt (sodium) in your diet. Sometimes, eating less salt may reduce swelling. ??? Moisturize skin daily to help prevent skin from cracking and draining. ??? Keep all follow-up visits as told by your health care provider. This is important. Contact a health care provider if you have: ??? A fever. ??? Edema that starts suddenly or is getting worse, especially if you are or have a medical condition. ??? Swelling in only one leg. ??? Increased swelling, redness, or pain in one or both of your legs. ??? Drainage or sores at the area where you have edema. Get help right away if you: ??? Develop shortness of breath, especially when you are lying down. ??? Have pain in your chest or abdomen. ??? Feel weak. ??? Feel faint. Summary ??? Peripheral edema is swelling that is caused by a buildup of fluid. Peripheral edema most often affects the lower legs, ankles, and feet. ??? Move around often to prevent stiffness and to lessen swelling. Do not sit or stand for long periods of time. ??? Pay attention to any changes in your symptoms. ??? Contact a health care provider if you have edema that starts suddenly or is getting worse, especially if you are or have a medical condition. ??? Get help right away if you develop shortness of breath, especially when lying down. This information is not intended to replace advice given to you by your health care provider. Make sure you discuss any questions you have with your health care provider. Document Released: 06/06/2005 Document Revised: 01/21/2019 Document Reviewed: 01/21/2019 Elsevier Patient Education ?? 2020 [employer]. Emergency Awareness and Preventative Care STROKE is an EMERGENCY Every Minute Counts Act FAST and Check for these signs: FACE Does the face look uneven? ARM Does one arm drift down? SPEECH Does their speech sound strange? TIME Call at any sign of stroke Stroke Risk Factors Atrial Fibrillation (irregular heartbeat) Diabetes Family history of stroke Heart Disease Heavy alcohol use High Blood Pressure High Cholesterol Physical inactivity and obesity Smoking Cigarette Smoking The facts are clear, cigarette smoking will shorten your life. Smoking can cause many illnesses along the way. As a healthcare provider, we recommend that you stop smoking. Assistance with quitting is available by contacting 1-276-JRIB-NOW. This is a free resource providing counseling, support, and referral. Or you may contact your personal physician. National Suicide Prevention Lifeline: The National Suicide Prevention Lifeline is a national network of local crisis centers that provides free and confidential emotional support to people in suicidal crisis or emotional distress 24 hours a day, 7 days a week. Don't Wait! Stop a Heart Attack Before it Starts What is a heart attack? A heart attack is damage or to a part of the heart from severely decreased or lack of blood flow to the heart. Over time, arteries can become narrow from the buildup of fat and cholesterol, which is called plaque. The plaque can rupture causing a blood clot to form. When the blood clot forms, the artery can become severely narrowed or completely blocked, causing a heart attack. Heart attack is the leading cause of in the [place]. 85% of muscle damage occurs within the first 2 hours. Delay in the recognition of heart attack symptoms increases the chances of . Know the early symptoms of a heart attack: Nausea Feeling of fullness in chest Jaw Pain Pain that travels down one or both arms Fatigue/being tired Anxiety Back Pain Chest pressure, squeezing, or discomfort Shortness of breath Sweating, or a cold sweat Feeling of impending doom There are unusual signs of a heart attack, too! Women, the elderly, and diabetics may present with atypical symptoms: Fainting/dizziness Weakness Confusion Risk Factors for a Heart Attack Some heart disease risk factors, such as age and family history, cannot be changed. Others, like smoking and lack of exercise, can be changed. Smoking High Cholesterol High Blood Pressure Family History Obesity Age Gender (Males are at higher risk) Lack of Exercise Diabetes Diet Stress Excessive Alcohol Intake If you or someone you know is experiencing the signs and symptoms of a heart attack, DON???T DELAY. Call immediately and seek help. If someone collapses, perform CPR! Do not attempt to drive if you are having symptoms of heart attack. Hands-Only CPR Why Hands-Only CPR? Hands-Only CPR has been shown to be as effective as conventional CPR for cardiac arrests that occur outside of a hospital. Survival depends on immediately receiving CPR from someone nearby. How do you perform Hands-Only CPR? There are two easy steps: Call if you see a teen or adult collapse Push hard and fast in the center of the chest at a beat of 100 beats per minute. Save a life! 4 WAYS TO GET AHEAD OF SEPSIS SEPSIS is a MEDICAL EMERGENCY. Time matters! Infections put you and your family at risk for a life-threatening condition called sepsis. Sepsis is the body's extreme response to an infection. It is life-threatening, and without timely treatment, sepsis can rapidly lead to tissue damage, organ failure, and . Sepsis happens when an infection you already have-in your skin, lungs, urinary tract or somewhere else-triggers a chain reaction throughout your body. 1 PREVENT INFECTIONS Take good care of chronic conditions. Talk to your doctor about getting the recommended vaccines. 2 PRACTICE GOOD HYGIENE Wash your hands frequently. Keep cuts or open sores clean and covered until they are healed. 3 KNOW THE SYMPTOMS Confusion or disorientation Shortness of breath High heart rate Fever, shivering, or feeling very cold Extreme pain or discomfort Clammy or sweaty skin 4 ACT FAST Get medical care IMMEDIATELY if you suspect sepsis or if you have an infection that is not getting better or is getting worse. To learn more about sepsis and how to prevent infections, visit www.cdc.gov/sepsis. The examination and treatment you have received in the Emergency Department has been done to provide an appropriate evaluation and stabilizing treatment on an emergency basis only. Given the limited resources, it is not meant to be a substitute for complete medical care. The follow-up doctor you named will receive a copy of your records and all test reports. IT IS IMPORTANT THAT YOU SCHEDULE A FOLLOW-UP APPOINTMENT AND ARE RE-EVALUATED. You should report any new complaints, symptoms, or remaining problems at that time. IT IS IMPOSSIBLE FOR THE EMERGENCY DEPARTMENT TO RECOGNIZE AND TREAT ALL ELEMENTS OF INJURY OR ILLNESS IN A SINGLE VISIT. If you have been referred to a specialist physician, it means that we believe you may have a condition that requires the expertise of a specialist. These physicians work in partnership with the hospital and have agreed to see referred patients in their office for further evaluation. KEEP IN MIND THAT THE SPECIALIST HAS HIS/HER OWN OFFICE POLICIES WHICH MAY REQUIRE PROPER INSURANCE OR PAYMENT UP FRONT BEFORE THE SPECIALIST WILL SEE YOU. It is your responsibility to call the specialist physician to make an appointment. We do not have the ability to refer patients to specialists/physicians that work with specific insurance companies. Please be advised that all financial charges or billing practices are determined by that practice, not the hospital. If your insurance company requires that you see a specialist from their approved list, it is your responsibility to contact your insurance company to make those arrangements. It is also your responsibility to follow any other requirements of your insurance company necessary to obtain coverage for claims submitted. We will bill your insurance; however, you are responsible today for any co-pay amounts. You will receive a separate bill for any services you may have received including: emergency, radiology, or pathology physicians. Patient Name:YASIR HERNANDEZ I have received this information and was given the opportunity to ask questions. Patient/Bobbin Stripper Name: Patient/Bobbin Stripper Signature: Relationship to Patient: Clinician/Hospital Bobbin Stripper Signature: Please Provide a Telephone Number Where You Can Be Reached: Is it Permissible To Leave a Message? Date: Electronically signed by [facility] Conversion Tool Planer Set Up Operator Anh at 08/29/2022 9:13 PM CDT documented in this encounter Plan of Treatment Not on file documented as of this encounter Visit Diagnoses Not on filedocumented in this encounter Care Teams Router Operator Relationship Specialty Start Date End Date Herminio Prather DO PCP - General Internal Medicine 05/02/24 documented as of this encounter
--- OUTSIDE RECORDS SUMMARY | 2024-11-02 09:29 | XMS_ITS | Encounter Summary ---
Author Organization [employer] Address [address] [place] [address] Care Team Providers Care Sizer Hand Name Role Phone Herminio Prather DO Primary Care Provider [phone] Encounter Details Date Type Department Care Team (Late st Contact Info) Description 07/05/2020 Transcribed Document [facility] [place] Family Medicine [address] [place] [address] ProviderEugenio MD [address] [place], [place] [id number] Social History Tobacco Use Types Packs/Day Years Used Date Smoking Tobacco: Never Assessed Sex and Gender Information Value Date Recorded Sex Assigned at Male 11/07/2021 11:00 AM CDT Legal Sex Male 11:00 AM CDT Gender Identity Male 11/07/2021 11:00 AM CDT Sexual Orientation Not on file documented as of this encounter Miscellaneous Notes * Cerner Conversion Note - Eugenio ProviderMD - 07/05/2020 7:58 PM PROCESS CONTROL MANAGER ED Assessment Entered On: 07/05/2020 22:51 EST Performed On: 07/05/2020 22:50 EST by Alyce Call curtain framer Quick Look Assessment Level of Consciousness : Alert, Awake Affect/Behavior : Appropriate, Calm, Cooperative Orientation : Oriented x 4 Skin Temperature : Warm Skin Description : Normal for ethnicity Alyce Call Rn - 07/05/2020 22:50 EST ED General-Functional Assess Information Obtained From : Patient Communication Barrier : None Primary Language : [place] Leonean Any Spiritual/Cultural Needs or Requests : No Currently in Unsafe Situation : No Alyce Call Rn - 07/05/2020 22:50 EST Social Habits Smoking Status : Never (less than 100 in lifetime; none in last 30 days) Smokeless Tobacco Status : Never Desires Tobacco Cessation Calc : 0 Alyce Call Rn - 07/05/2020 22:50 EST Social History (As Of: 07/05/2020 22:51:51 EST) Cardiovascular ASMT, ED Cardiovascular Assessment WDL : WDL Alyce Call Rn - 07/05/2020 22:50 EST Integumentary Assessment Skin Description : Red Integumentary Assessment WDL : WDL with exceptions (Comment: pt c/o bilateral lower extremity swelling and redness x 4 days. pt has small ulcers noted to ble [Alyce Call Rn - 07/05/2020 22:50 EST] ) Alyce Call Rn - 07/05/2020 22:50 EST Neurologic ASMT, ED Neurologic Assessment WDL : WD Alyce Call Rn - 07/05/2020 22:50 EST Electronically signed by Neville Herring [employer]version International First Officer Cerner at 08/29/2022 9:22 PM CDT documented in this encounter Plan of Treatment Not on file documented as of this encounter Visit Diagnoses Not on filedocumented in this encounter Care Teams Sizer Hand Relationship Specialty Start Date End Date Herminio Prather DO PCP - General Internal Medicine 05/02/24 documented as of this encounter
--- OUTSIDE RECORDS SUMMARY | 2024-11-02 09:29 | XMS_ITS | Encounter Summary ---
Author Organization [employer] Address [address] [place] [address] Care Team Providers Care Lead Atg Developer Name Role Phone Herminio Prather DO Primary Care Provider [phone] Encounter Details Date Type Department Care Team (Late st Contact Info) Description 07/05/2020 Transcribed Document [facility] [place] Medicine [address] [place] [address] ProviderEugenio MD [address] [place], [place] [id number] Social History Tobacco Use Types Packs/Day Years [...] - Eugenio ProviderMD - 07/05/2020 7:58 PM LEATHER SPONGER ED Triage Entered On: 07/05/2020 20:22 EST Performed On: 07/05/2020 20:21 EST by LOR STACK Rn ED Triage Across the Room ED Vital Signs : Document Chief Complaint : Pt c/o bilateral lower extremity pain, swelling and ulcers x 4 weeks LOR STACK Rn - 07/05/2020 20:33 EST Triage Date/Time : 07/05/2020 20:21 EST LOR STACK Rn - 07/05/2020 20:21 EST DCP GENERIC CODE Tracking Group : [facility] ED Tracking Acuity : 3 - Urgent LOR STACK Rn - 07/05/2020 20:21 EST Mode of Arrival : Ambulatory Transported to ED by : Private vehicle To Room Via : Wheelchair Accompanied By : Unaccompanied Height & Weight : Document ED Allergies : Document ED Infection Control : No ED Reason for Visit : Document LOR STACK Rn - 07/05/2020 20:21 EST Infectious Disease History Has the patient ever been tested for COVID-19? : No, Patient stated Does patient have symptoms of COVID-19? : No COVID19 Screening : No Experiencing Infectious Disease Symptoms : No symptoms Physical contact outside [place] in the last 30 days : No Infectious Disease History : Hepatitis C, TB Tuberculosis Symptoms : None LOR STACK Rn - 07/05/2020 20:21 EST Vital Signs ED Temperature Source : Temporal artery scanning Temperature Mode : Fahrenheit Temperature, Fahrenheit : 97.2 Deg F Clinical Temperature, C : 36.2 Deg C Oxygen Therapy Mode : Room air Peripheral Pulse Rate : 96 bpm Respiratory Rate : 16 Breaths/Min Systolic Blood Pressure : 141 mmHg (HI) Diastolic Blood Pressure : 91 mmHg (HI) Oxygen Saturation : 96 % LOR STACK Rn - 07/05/2020 20:33 EST Allergy (As Of: 07/05/2020 20:22:59 EST) Allergies (Active) penicillins Estimated Onset Date: Unspecified ; Reactions: Hives, Hives ; Created By: CONTRIBUTOR_SYSTEMTAINA; Reaction Status: Active ; Category: Drug ; Substance: penicillins ; Type: Allergy ; Updated By: CONTRIBUTOR_SYSTEMTAINA; Reviewed Date: 07/05/2020 20:22 EST Diagnosis Control ED (As Of: 07/05/2020 20:22:59 EST) Problems(Active) Hypertension (SNOMED CT :9379865838 ) Name of Problem: Hypertension ; Recorder: LOR STACK Rn; Confirmation: Confirmed ; Classification: Medical ; Code: [id number] ; Contributor System: [employer] ; Last Updated: 07/05/2020 20:22 EST ; Life Cycle Date: 07/05/2020 ; Life Cycle Status: Active ; Vocabulary: SNOMED CT Diagnoses(Active) Leg pain-swelling Date: 07/05/2020 ; Diagnosis Type: Reason For Visit ; Confirmation: Complaint of ; Clinical Dx: Leg pain-swelling ; Classification: Medical ; Clinical Service: Emergency medicine ; Code: PNED ; Probability: 0 ; Diagnosis Code: [id number] ED Height and Weight Height Source : Stated Height Entry Format : [place] Height, Feet : 5 ft(Converted to: 152 cm, 60 Inch) Height, Inches : 7 Inch(Converted to: 0 ft 7 Inch, 17.78 cm) Clinical Height : 170.18 cm Weight Source, ED : Critical estimated dosing weight Weight Entry Format : [place] Weight, Pounds : 310 lb Clinical Dosing Weight : 140.91 kg Body Surface Area (BSA) : 2.44 m2 Body Mass Index : 48.7 kg/m2 (>HHI) [place] Body Weight (IBW) : 65.16 kg LOR STACK Rn - 07/05/2020 20:21 EST Electronically signed by Neville Herring Conversion Information Security Analyst Cerner at 08/29/2022 9:15 PM CDT documented in this encounter Plan of Treatment Not on file documented as of this encounter Visit Diagnoses Not on filedocumented in this encounter Care Teams Lead Atg Developer Relationship Specialty Start Date End Date Herminio Prather DO PCP - General Internal Medicine 05/02/24 documented as of this encounter
--- OUTSIDE RECORDS SUMMARY | 2024-11-02 09:29 | XMS_ITS | Encounter Summary ---
Author Organization [employer] Address [address] [place] [address] Care Team Providers Care Media Production Manager Name Role Phone Herminio Prather DO Primary Care Provider [phone] Encounter Details Date Type Department Care Team (Late st Contact Info) Description 07/05/2020 Transcribed Document [facility] [place] [facility] [place] [address] ProviderEugenio MD [address] [place] [address] [id number] Social History Tobacco Use Types Packs/Day Years Used Date Smoking Tobacco: Never Assessed Sex and Gender Information Value Date Recorded Sex Assigned at Male 11/07/2021 11:00 AM CDT Legal Sex Male 11:00 AM CDT Gender Identity Male 11/07/2021 11:00 AM CDT Sexual Orientation Not on file documented as of this encounter Miscellaneous Notes * Cerner Conversion Note - Eugenio ProviderMD - 07/05/2020 9:48 PM NURSE UNIT MANAGER Patient: YASIR HERNANDEZ Age: 54 years Sex: Male : 1965 Associated Diagnoses: Bilateral leg edema Author: MIGEL JADE MD Basic Information Additional information: Chief Complaint from Nursing Triage Note : Chief Complaint 07/05/2020 20:21 EST Chief Complaint Pt c/o bilateral lower extremity pain, swelling and ulcers x 4 weeks (Modified) . History of Present Illness The patient presents with lower extremity pain and lower extremity swelling. The onset was 4 weeks ago. The course/duration of symptoms is constant. Type of injury: none. Location: Bilateral leg. The character of symptoms is pain, swelling and several small ulcers developed, not redness. The degree at present is moderate. The exacerbating factor is none. The relieving factor is none. Risk factors consist of hypertension, not deep vein thrombosis and not pulmonary embolism. Prior episodes: none. Therapy today: none. Associated symptoms: denies fever, denies chills, denies rash, denies chest pain, denies shortness of breath and denies back pain. Review of Systems Constitutional symptoms: No fever, no chills, no sweats, no weakness, no fatigue. Skin symptoms: No rash, Eye symptoms: Vision unchanged, no pain, no discharge, no blurred vision. ENMT symptoms: No ear pain, no sore throat, no nasal congestion. Respiratory symptoms: No shortness of breath, no cough. Cardiovascular symptoms: Peripheral edema, no chest pain, no palpitations, no syncope. Gastrointestinal symptoms: No abdominal pain, no nausea, no vomiting, no diarrhea. Genitourinary symptoms: No dysuria, no hematuria. Musculoskeletal symptoms: No back pain, no Joint pain. Neurologic symptoms: No headache, no dizziness, no numbness, no weakness. Health Status Allergies: Allergic Reactions (Selected) Severity Not Documented Penicillins- Hives and hives.. Medications: (Selected) Inpatient Medications Ordered Normal Saline Flush: 10 mL, IV Push, See Comment. Past Medical/ Family/ Social History Surgical history: No active procedure history items have been selected or recorded., Reviewed as documented in chart. Family history: No family history items have been selected or recorded., Reviewed as documented in chart. Social history: Social & Psychosocial Habits No Data Available , Reviewed as documented in chart. Problem list: Active Problems (1) Hypertension , per nurse's notes. Physical Examination Vital Signs Vital Signs/Vital Measures 07/05/2020 20:21 EST Systolic Blood Pressure 141 mmHg HI Diastolic Blood Pressure 91 mmHg HI Temperature Source Temporal artery scanning Temperature Mode Fahrenheit Temperature, Fahrenheit 97.2 Deg F Clinical Temperature, C 36.2 Deg C Peripheral Pulse Rate 96 bpm Respiratory Rate 16 Breaths/Min Oxygen Saturation 96 % Oxygen Therapy Mode Room air . Measurements 07/05/2020 20:21 EST Height Source Stated Height Entry Format [place] Height/Length, MONEGASQUE (ft) 5 ft Height/Length MONEGASQUE 7 Inch CLINICALHEIGHT 170.18 cm [place] Body Weight 65.16 kg Weight Source, ED Critical estimated dosing weight Weight Entry Format [place] Weight Kuwaiti lb 310 lb CLINICALWEIGHT 140.91 kg Body Surface Area (BSA) 2.44 m2 Body Mass Index 48.7 kg/m2 >HHI . Oxygen Saturation 07/05/2020 20:21 EST Oxygen Saturation 96 % . General: Alert, no acute distress. Skin: Warm. Head: Normocephalic. Neck: Supple. Eye: Sclera: not icteric. Ears, nose, mouth and throat: Oral mucosa moist. Cardiovascular: Regular rate and rhythm, No murmur, Normal peripheral perfusion, Edema: Bilateral, lower extremity, 2+, pitting, multiple 1cm stage 1 and 2 ulcers lower legs. Respiratory: Lungs are clear to auscultation, respirations are non-labored, breath sounds are equal. Chest wall: No tenderness. Back: Nontender. Gastrointestinal: Soft, Nontender, Non distended, Normal bowel sounds. Neurological: No focal neurological deficit observed. Lymphatics: No lymphadenopathy. Psychiatric: Cooperative. Medical Decision Making Documents reviewed: Emergency department nurses' notes. Results review: Lab results : Lab Results 07/05/2020 22:06 EST Sodium Level 133 mmol/L LOW Potassium Level 4.4 mmol/L Chloride Level 102 mmol/L Carbon Dioxide Level 28 mmol/L Anion Gap 7 LOW Glucose Level 105 mg/dL Blood Urea Nitrogen 9 mg/dL Creatinine Level 1.10 mg/dL eGFR >60 mL/min/1.73m2 eGFR NonAfrican >60 mL/min/1.73m2 Bun/Creatinine 8.2 Calcium Level 8.5 mg/dL Protein Total 7.6 Gram/dL Albumin Level 2.8 Gram/dL LOW Globulin 4.8 Gram/dL HI A/G Ratio 0.6 LOW Bilirubin Total 0.4 mg/dL Alk Phos 72 Units/Liter AST 35 Units/Liter ALT 30 Units/Liter ProBNP 35 pg/mL WBC 6.1 K/uL RBC 4.43 Million/uL Hgb 12.6 g/dL LOW Hct 39.2 % LOW MCV 88.5 fL MCH 28.4 pg MCHC 32.1 Gram/dL Platelet Count 228 K/uL MPV 9.3 fL LOW RDW 15.3 % HI Neut % 46.8 % Neut # 2.84 K/uL Lymph % 35.3 % Lymph # 2.14 K/uL [place] % 10.0 % [place] # 0.61 K/uL Eos % 5.6 % Eos # 0.34 Baso % 2.3 % HI Baso # 0.14 Slide Review No . Radiology results: Ultrasound, B/L LE venous, discussed with radiologist, interpretation: no DVT. Notes: CXR- NAD, EKG- 2243, rate 83, NSR, normal axis, no acute ischemic changes, no STEMI. Impression and Plan Diagnosis Bilateral leg edema - Discharge, Medical Plan Condition: Stable. Disposition: Discharged Admit/Transfer/Discharge: Discharge (Order): Start: 07/05/2020 23:05 EST, Discharge to: Home. Prescriptions: Prescription [facility]: Lasix 40 mg oral tablet (Prescribe): 1 Tab, Oral, Daily, 14 Tab, 0 Refill(s). Patient was given the following educational materials: Peripheral Edema. Follow up with: KASSIDY BYRD Within 2 to 3 days; ARTHUR GUZMAN Within 2 to 3 days. Counseled: Patient, Regarding diagnosis, Regarding diagnostic results, Regarding treatment plan, Regarding prescription, Patient indicated understanding of instructions. Notes: Chronic and worsening bilateral lower extremity edema with mild ulcers. Bilateral feet warm to touch, pink, normal cap refill and pulses. Concern for venous stasis. Started on Lasix and referred to vascular surgery for follow-up. Given clear return precautions. No signs of cellulitis. No DVT on ultrasound.. documented in this encounter Plan of Treatment Not on file documented as of this encounter Visit Diagnoses Not on filedocumented in this encounter Care Teams Media Production Manager Relationship Specialty Start Date End Date Herminio Prather DO PCP - General Internal Medicine 05/02/24 documented as of this encounter
--- OUTSIDE RECORDS SUMMARY | 2024-11-02 09:29 | XMS_ITS | Encounter Summary ---
Author Organization [facility] [employer] Address [address] [place] [address] Care Team Providers Care Modern Languages Professor Name Role Phone Herminio Prather DO Primary Care Provider [phone] Encounter Details Date Type Department Care Team (Late st Contact Info) Description 08/25/2018 Transcribed Document [facility] [place] [facility] [place] [address] ProviderEugenio MD [facility] [place], [place] [id number] Social History Tobacco Use Types Packs/Day Years Used Date Smoking Tobacco: Never Assessed Sex and Gender Information Value Date Recorded Sex Assigned at Male 11/07/2021 11:00 AM CDT Legal Sex Male 11:00 AM CDT Gender Identity Male 11/07/2021 11:00 AM CDT Sexual Orientation Not on file documented as of this encounter Miscellaneous Notes * Cerner Conversion Note - Eugenio ProviderMD - 08/25/2018 4:57 PM CDT documented in this encounter Plan of Treatment Not on file documented as of this encounter Visit Diagnoses Not on filedocumented in this encounter Care Teams Modern Languages Professor Relationship Specialty Start Date End Date Herminio Prather DO PCP - General Internal Medicine 05/02/24 documented as of this encounter
--- OUTSIDE RECORDS SUMMARY | 2024-11-02 09:29 | XMS_ITS | Encounter Summary ---
Author Organization [facility] [employer] Address [address] [place] [address] Care Team Providers Care Glass Presser Name Role Phone FredijewellHerminio DO Primary Care Provider [phone] Encounter Details Date Type Department Care Team (Late st Contact Info) Description 07/05/2020 Transcribed Document [facility] [place] Family Medicine [address] [place] [address] ProviderEugenio MD [address] [place], [place] [address] Social History Tobacco Use Types Packs/Day Years [...] - Eugenio ProviderMD - 07/05/2020 7:58 PM PRACTICE NURSE [place] Violence Assessment Entered On: 07/05/2020 22:51 EST Performed On: 07/05/2020 22:50 EST by Alyce Call Rn Broset Violence Assessment Broset Violence Checklist of Symptoms : None Broset Violence Symptoms Subtotal : 0 Broset Violence Symptoms Indicator : Low risk (0) Alyce Call Rn - 07/05/2020 22:50 EST Electronically signed by Nima [facility] Conversion Farm Product Purchaser Cerner at 08/29/2022 9:37 PM CDT documented in this encounter Plan of Treatment Not on file documented as of this encounter Visit Diagnoses Not on filedocumented in this encounter Care Teams Glass Presser Relationship Specialty Start Date End Date Herminio Prather DO PCP - General Internal Medicine 05/02/24 documented as of this encounter
--- OUTSIDE RECORDS SUMMARY | 2024-11-02 09:29 | XMS_ITS | Encounter Summary ---
Author Organization [employer] Address [address] [place] [address] Care Team Providers Care Air Defense Specialist Name Role Phone Herminio Prather DO Primary Care Provider [phone] Encounter Details Date Type Department Care Team (Late st Contact Info) Description 08/25/2018 Transcribed Document [facility] [place] [address] [place] [address] ProviderEugenio MD [facility] [place] [address] Social History Tobacco Use Types Packs/Day Years Used Date Smoking Tobacco: Never Assessed Sex and Gender Information Value Date Recorded Sex Assigned at Male 11/07/2021 11:00 AM CDT Legal Sex Male 11:00 AM CDT Gender Identity Male 11/07/2021 11:00 AM CDT Sexual Orientation Not on file documented as of this encounter Miscellaneous Notes * Cerner Conversion Note - Eugenio ProviderMD - 08/25/2018 6:14 PM CDT ED Discharge Entered On: 08/25/2018 18:15 EDT Performed On: 08/25/2018 18:14 EDT by Jaqueline Chacon senior online marketing manager Process Patient Disposition : Discharge Personal Belongings With Patient : Yes Patient Education Completed : Yes Teaching Evaluation : Verbalizes understanding IV Discontinued : Yes Nursing Documentation Completed : Yes Jaqueline Chacon RN - 08/25/2018 18:14 EDT ED Discharge Discharge To : Home with ambulatory/outpatient follow-up Mode Of Departure : Ambulatory Accompanied By : Sibling Discharge Instructions Reviewed With, Opportunity For Questions Given : Patient, Sibling Prescriptions Given to Patient : Yes Number of Prescriptions Given : 4 Jaqueline Chacon RN - 08/25/2018 18:14 EDT documented in this encounter Plan of Treatment Not on file documented as of this encounter Visit Diagnoses Not on filedocumented in this encounter Care Teams Air Defense Specialist Relationship Specialty Start Date End Date Herminio Prather DO PCP - General Internal Medicine 05/02/24 documented as of this encounter
--- OUTSIDE RECORDS SUMMARY | 2024-11-02 09:29 | XMS_ITS | Encounter Summary ---
Author Organization [employer] Address [address] [place] [address] Care Team Providers Care Vessel Engineer Name Role Phone Karishma Prather DO Primary Care Provider [phone] Encounter Details Date Type Department Care Team (Late st Contact Info) Description 08/25/2018 Transcribed Document [facility] [place] [address] [place] [address] ProviderEugenio MD [address] [place] [address] Social History Tobacco Use Types Packs/Day Years Used Date Smoking Tobacco: Never Assessed Sex and Gender Information Value Date Recorded Sex Assigned at Male 11/07/2021 11:00 AM CDT Legal Sex Male 11:00 AM CDT Gender Identity Male 11/07/2021 11:00 AM CDT Sexual Orientation Not on file documented as of this encounter Miscellaneous Notes * Cerner Conversion Note - Eugenio Freitas MD - 08/25/2018 6:07 PM CDT [facility] [place] [address] YASIR HERNANDEZ :1965 Visit Time:08/25/2018 Your Visit Summary Your Care Team Admitting Physician - STEPHANIE VAZQUEZ MD Attending Physician - STEPHANIE VAZQUEZ MD Primary Care Physician - GENEVIEVE ORTEGA DR Referring Physician - STEPHANIE VAZQUEZ MD Your Diagnosis Abscess, perirectal Dysuria Dysuria Rectal pain Rectal pain Patient Portal Reminder: Be sure to sign up for the [employer] patient portal, which gives you 03/12 access to your medical information ??? including these discharge instructions ??? using your computer, smartphone, or tablet. Just go to [email or web address] to get started. Questions? Call . You may also obtain a copy of your Emergency Department [...] do next Follow-Up Appointments Follow Up with KARISHMA PIÑA When Within in AM Comments [facility] is expecting you and will see you tomorrow. Where: [address] [place] [address] Business (1) Follow Up with NO PRIM DR ORTEGA When Within 2 to 3 days Follow Up with Patient Resource Center When Within 2 to 3 days Comments Please contact the Patient Resource Center at if you need assistance finding a Primary Care Provider in the future. Follow Up with FAMILY (REF) NO When Within 2 to 3 days Allergies penicillins (Hives, Hives) Immunizations This Visit No Immunizations Found Medications What How Much When Instructions Next Dose New acetaminophen-hydrocodone ([place]ford 10 mg-325 mg oral tablet) 1 Tablet(s) Oral Every 6 Hours as needed for for pain Duration: 3 Day(s) Printed Prescription New ciprofloxacin (Cipro 500 mg oral tablet) 1 Tablet(s) Oral Every 12 hours Duration: 10 Day(s) Printed Prescription New docusate (Colace 100 mg oral capsule) 1 Capsule(s) Oral Two Times A Day as needed for as needed for constipation Printed Prescription New metroNIDAZOLE (Flagyl 500 mg oral tablet) 1 Tablet(s) Oral Every 8 Hours Duration: 10 Day(s) Printed Prescription The home medications listed are [...] This Visit (last charted value for your 08/25/2018 visit) Hematology 08/25/18 14:31:00 WBC: 12.4 K/uL -- Normal range between ( 3.6 and 9.5 ) RBC: 4.68 Million/uL -- Normal range between ( 4.20 and 5.70 ) Hct: 41.3 % -- Normal range between ( 40.1 and 51.0 ) Hgb: 13.9 g/dL -- Normal range between ( 13.7 and 17.5 ) Platelet Count: 270 K/uL -- Normal range between ( 163 and 369 ) MCH: 29.7 pg -- Normal range between ( 25.6 and 32.2 ) MCHC: 33.7 Gram/dL -- Normal range between ( 31.5 and 35.7 ) MCV: 88.2 fL -- Normal range between ( 79.0 and 94.8 ) Slide Review: No Eos %: 0.6 % -- Normal range between ( 0.0 and 7.0 ) [place] #: 0.92 K/uL -- Normal range between ( 0.16 and 1.00 ) Eos #: 0.07 -- Normal range between ( 0.00 and 5.00 ) [place] %: 7.4 % -- Normal range between ( 3.5 and 11.1 ) Baso %: 0.2 % -- Normal range between ( 0.0 and 2.0 ) Baso #: 0.03 -- Normal range between ( 0.00 and 2.00 ) RDW: 13.0 % -- Normal range between ( 11.7 and 14.9 ) Neut %: 77.1 % -- Normal range between ( 34.0 and 71.0 ) Neut #: 9.57 K/uL -- Normal range between ( 1.60 and 7.00 ) Lymph %: 14.7 % -- Normal range between ( 19.3 and 53.1 ) Lymph #: 1.83 K/uL -- Normal range between ( 1.00 and 3.50 ) MPV: 9.6 fL -- Normal range between ( 9.4 and 12.4 ) Urinalysis 08/25/18 14:08:00 Ur RBC: 0-2 /HPF Urine Nitrite: Negative Urine Leukocyte Esterase: Trace Urine Appearance: Clear Urine Glucose Dipstick: Negative Urine Blood Dipstick: Negative Urine Type: U CleanCatch Urine Urobilinogen Dipstick: 0.2 EU/dL Urine Protein Dipstick: Negative Ur Squamous Epithelial Cells: 0-2 /HPF Urine Color: Yellow Ur Transitional Epi Cells: 0-2 Ur WBC: 0-2 /HPF Urine Ketones Dipstick: Negative Urine pH Dipstick: 7.0 -- Normal range between ( 6.0 and 8.0 ) Urine Bilirubin Dipstick: Negative Urine Specific [place]: 1.007 -- Normal range between ( 1.005 and 1.030 ) General Chemistry 08/25/18 14:31:00 Creatinine Level: 1.40 mg/dL -- Normal range between ( 0.70 and 1.30 ) Sodium Level: 138 mmol/L -- Normal range between ( 136 and 146 ) Potassium Level: 4.1 mmol/L -- Normal range between ( 3.5 and 5.1 ) Chloride Level: 102 mmol/L -- Normal range between ( 102 and 112 ) Carbon Dioxide Level: 26 mmol/L -- Normal range between ( 21 and 32 ) Anion Gap: 14 -- Normal range between ( 9 and 20 ) Bilirubin Total: 0.7 mg/dL -- Normal range between ( 0.2 and 1.2 ) A/G Ratio: 0.8 -- Normal range between ( 1.1 and 2.5 ) ALT: 15 Units/Liter -- Normal range between ( 16 and 61 ) AST: 17 Units/Liter -- Normal range between ( 5 and 37 ) Globulin: 4.0 Gram/dL -- Normal range between ( 1.5 and 4.5 ) Alk Phos: 65 Units/Liter -- Normal range between ( 27 and 136 ) Bun/Creatinine: 8.7 -- Normal range between ( 8.0 and 20.0 ) Calcium Level: 8.5 mg/dL -- Normal range between ( 8.4 and 10.1 ) eGFR : >60 mL/min/1.73m2 eGFR NonAfrican: 53 mL/min/1.73m2 Glucose Level: 138 mg/dL -- Normal range between ( 74 and 106 ) Blood Urea Nitrogen: 13 mg/dL -- Normal range between ( 7 and 22 ) Lactic Acid Level: 1.6 mmol/L -- Normal range between ( 0.4 and 2.0 ) Protein Total: 7.3 Gram/dL -- Normal range between ( 6.4 and 8.2 ) Albumin Level: 3.3 Gram/dL -- Normal range between ( 3.4 and 5.0 ) Coagulation 08/25/18 14:31:00 INR: 1.0 -- Normal range between ( 0.9 and 1.1 ) PTT: 28.2 Second(s) -- Normal range between ( 22.0 and 32.0 ) PT: 10.3 Second(s) -- Normal range between ( 9.6 and 12.0 ) Endocrinology 08/25/18 14:31:00 Procalcitonin: 0.25 ng/mL -- Normal range between ( 0.00 and 2.00 ) Computed Tomography 08/25/18 14:40:48 CT Abdomen Pelvis WO: CT Abdomen Pelvis WO Education Materials Perirectal Abscess Introduction An abscess is an infected area that contains a collection of pus. A perirectal abscess is an abscess that is near the opening of the anus or around the rectum. A perirectal abscess can cause a lot of pain, especially during bowel movements. What are the causes? This condition is almost always caused by an infection that starts in an anal gland. What increases the risk? This condition is more likely to develop in: ??? People with diabetes or inflammatory bowel disease. ??? People whose body defense system (immune system) is weak. ??? People who have anal sex. ??? People who have a sexually transmitted disease (STD). ??? People who have certain kinds of cancers, such as rectal carcinoma, leukemia, or lymphoma. What are the signs or symptoms? The main symptom of this condition is pain. The pain may be a throbbing pain that gets worse during bowel movements. Other symptoms include:???Fever. ??? Swelling. ??? Redness. ??? Bleeding. ??? Constipation. How is this diagnosed? The condition is diagnosed with a physical exam. If the abscess is not visible, a health care provider may need to place a finger inside the rectum to find the abscess. Sometimes, imaging tests are done to determine the size and location of the abscess. These tests may include: ??? An ultrasound. ??? An MRI. ??? A CT scan. How is this treated? This condition is usually treated with incision and drainage surgery. Incision and drainage surgery involves making an incision over the abscess to drain the pus. Treatment may also involve antibiotic medicine, pain medicine, stool softeners, or laxatives.Follow these instructions at home: ??? Take medicines only as directed by your health care provider. ??? If you were prescribed an antibiotic, finish all of it even if you start to feel better. ??? To relieve pain, try sitting: ? In a warm, shallow bath (sitz bath). ? On a heating pad with the setting on low. ? On an inflatable donut-shaped cushion. ??? Follow any diet instructions as directed by your health care provider. ??? Keep all follow-up visits as directed by your health care provider. This is important. Contact a health care provider if: ??? Your abscess is bleeding. ??? You have pain, swelling, or redness that is getting worse. ??? You are constipated. ??? You feel ill. ??? You have muscle aches or chills. ??? You have a fever. ??? Your symptoms return after the abscess has healed. This information is not intended to replace advice given to you by your health care provider. Make sure you discuss any questions you have with your health care provider. Document Released: 04/26/2001 Document Revised: 10/04/2016 Document Reviewed: 03/09/2015 ?? 2017 Scaled Inference Emergency Awareness and Preventative Care STROKE is [...] Assistance with quitting is available by contacting 7-938-ZZQZNeedcheckNOW. This is a free resource providing counseling, [...] was given the opportunity to ask questions. Patient/Developer Evangelist Name: Patient/Developer Evangelist Signature: Relationship to Patient: Clinician/Hospital Developer Evangelist Signature: Please Provide a Telephone Number Where You Can Be Reached: Is it Permissible To Leave a Message? Date: Electronically signed by Nima, [facility] Conversion Reliability Technicians Cerner at 08/29/2022 9:21 PM CDT documented in this encounter Plan of Treatment Not on file documented as of this encounter Visit Diagnoses Not on filedocumented in this encounter Care Teams Vessel Engineer Relationship Specialty Start Date End Date Karishma Prather DO PCP - General Internal Medicine 05/02/24 documented as of this encounter
--- OUTSIDE RECORDS SUMMARY | 2024-11-02 09:29 | XMS_ITS | Clinical Summary ---
Author Organization [employer] Address [address] [place] [address] Care Team Providers Care Greaser And Oiler Name Role Phone Herminio Prather DO Primary Care Provider [phone] [phone] Allergies Active Allergy Reactions Criticality Noted Date Comments Penicillin Other (See Comments) Low 05/02/2024 Mother told him he was allergic when he was younger. Previously tolerated cephalexin, ceftriaxone in 2020 Medications benzonatate (TESSALON) 200 MG capsule Take 1 capsule (200 mg total) by mouth 3 (three) times daily as needed for cough for up to 7 days. 20 capsule 10/16/2024 10/24/19 25 Encounters Date Type Department Care Team Description 10/16/2024 7:50 PM EDT - 10/16/2024 10:22 PM EDT Emergency [facility] Emergency Department [address] [place] [id number] Dedra Mart MD Bronchitis (Primary Dx); Syncope, unspecified syncope type; Bradycardia; Abrasion; Sprain and strain; Chronic kidney disease, unspecified CKD stage; Chronic pansinusitis Discharge Disposition: Left Against Medical Advice 10/16/2024 Travel from Last 3 Months Social History Tobacco Use Types Packs/Day Years Used Date Smoking Tobacco: Every Day Cigarettes Smokeless Tobacco: Never Tobacco Cessation:Ready to Q uit: Not Asked; Counseling Given: Not Answered Alcohol Use Standard Drinks/Week Comments Never 0 (1 standard drink = 0.6 oz pur e alcohol) Sex and Gender Information Value Date Recorded Sex Assigned at Male 11/07/2021 11:00 AM CDT Legal Sex Male 11:00 AM CDT Gender Identity Male 11/07/2021 11:00 AM CDT Sexual Orientation Not on file Last Filed Vital Signs Vital Sign Reading [...] Mass Index 42.29 10/16/2024 7:45 PM EDT Plan of Treatment Health Maintenance Due Date Last Done Comments CT Colonography 1965 Colonoscopy 1965 Colorectal Cancer Screening 1965 FOBT/FIT 1964 Fit-DNA (Cologuard) 1965 Sigmoidoscopy 1965 Depression Screening (12+) 1976 Tobacco Cessation Counseling and Screening (12+) 07/21 HIV Screening 07/22/1979 Hepatitis C Screening 1982 DTAP/TDAP/TD VACCINES (1 - Tdap) 07/22/1983 Pneumococcal 50+ years (1 of 2 - PCV) 07/22/1983 Lipid Panel 07/22/1999 Shingles Vaccine (Zoster) (1 of 2) 2014 COVID-19 VACCINE ( - season) 2024 Influenza Vaccine (Season Ended) 2025 Procedures Procedure Name Priority Date/Time Associated Diagnosis Comments BLOOD CULTURE STAT 10/16/2024 9:29 PM EDT LACTIC ACID WITH REFLEX STAT 10/16/2024 9:22 PM EDT BLOOD CULTURE STAT 10/16/2024 9:22 PM EDT PROBNP Add-On 10/16/2024 8:41 PM EDT HIGH SENSITIVITY TROPONIN I STAT 10/16/2024 8:41 PM EDT MAGNESIUM STAT 10/16/2024 8:41 PM EDT COMPREHENSIVE METABOLIC PANEL STAT 10/16/2024 8:41 PM EDT CBC W/ AUTO DIFF STAT 10/16/2024 8:41 PM EDT XR WRIST [...] STAT 10/16/2024 8:09 PM EDT EKG-SCANNED 10/16/2024 from Last 3 Months Results * Blood Culture (10/16/2024 9:29 PM EDT) Only the most recent of2 resultswithin the time period is included. Result No growth in 5 days 10/21/2024 7:12 AM EDT [facility] Blood Venipuncture / Unknown 10/16/2024 9:29 PM EDT 10/16/2024 9:37 PM EDT us Dedra Mart MD MICROBIOLOGY - GENERAL ORDERABLE S Final Result [facility] [address] [place] [address], [facility] [phone] * Lactic Acid with reflex (SJ) (10/16/2024 9:22 PM EDT) Lactic Acid Level (mmol/L) 0.9 0.5 - 2.2 mmol/L 10/16/2024 10:03 PM EDT [facility] Blood Venipuncture / Unknown 10/16/2024 9:22 PM EDT 10/16/2024 9:37 PM EDT us Dedra Mart MD LAB BLOOD ORDERABLES Final Resul t [facility] [address] [phone] * (ABNORMAL) CBC with automated diff (10/16/2024 8:41 PM EDT) Pathologist [facility] WBC 9.2(H) 4.2 - 9.1 K/ L 10/16/2024 8:59 PM EDT [facility] RBC 4.75 4.63 - 6.08 M/ L 10/16/2024 8:59 PM EDT [facility] Hemoglobin 14.6 13.7 - 17.5 GM/DL 10/16/2024 8:59 PM EDT [facility] Hematocrit 43.3 40.1 - 51.0 % 10/16/2024 8:59 PM EDT [facility] MCV 91 79 - 92 fL 10/16/2024 8:59 PM EDT [facility] MCH 30.7 25.7 - 32.2 pg 10/16/2024 8:59 PM EDT [facility] MCHC 33.7 32.3 - 36.5 GM/DL 10/16/2024 8:59 PM EDT [facility] RDW 13.4 11.6 - 14.4 % 10/16/2024 8:59 PM EDT [facility] Platelets 277 140 - 375 K/CU MM 10/16/2024 8:59 PM EDT [facility] MPV 9.4 9.4 - 12.4 fL 10/16/2024 8:59 PM EDT [facility] % Neutros 66 34 - 68 % 10/16/2024 8:59 PM EDT [facility] % Lymphs 24 22 - 53 % 10/16/2024 8:59 PM EDT [facility] % Monos 5 5 - 12 % 10/16/2024 8:59 PM EDT [facility] % Eos 3 1 - 7 % 10/16/2024 8:59 PM EDT [facility] % Baso 0 0 - 1 % 10/16/2024 8:59 PM EDT [facility] NRBC Absolute <0.01 0 - 0.012 K/ul 10/16/2024 8:59 PM EDT [facility] # Neutros 6.10(H) 1.78 - 5.38 K/ L 10/16/2024 8:59 PM EDT [facility] # Lymphs 2.25 1.32 - 3.57 K/ L 10/16/2024 8:59 PM EDT [facility] # Monos 0.49 0.30 - 0.82 K/ L 10/16/2024 8:59 PM EDT [facility] # Eos 0.25 0.04 - 0.54 K/ L 10/16/2024 8:59 PM EDT [facility] # Baso 0.03 0.01 - 0.08 K/ L 10/16/2024 8:59 PM EDT [facility] Immature Granulocytes-Re lative 1.10(H) 0.01 - 0.43 % 10/16/2024 8:59 PM EDT [facility] # IG 0.10(H) 0.00 - 0.03 K/uL 10/16/2024 8:59 PM EDT [facility] Blood Venipuncture / Unknown 10/16/2024 8:41 PM EDT 10/16/2024 8:57 PM EDT Narrative [facility] - 10/16/2024 8:59 PM EDT When [...] Blast? Flag noted Atypical Lymph flag noted us Henry Chaidez INTERVENTION MANAGER LAB BLOOD ORDERABLES Final Resu lt Performing Organization Address City/[facility]/ZIP Co de Phone Number [facility] [address] [phone] * High Sensitivity Troponin I (10/16/2024 8:41 PM EDT) [facility] Troponin I High Sensitivity (pg/mL) <5.0 <=35 pg/mL 10/16/2024 9:28 PM EDT [facility] Blood Venipuncture / Unknown 10/16/2024 8:41 PM EDT 10/16/2024 8:57 PM EDT [facility] - 10/16/2024 9:28 PM EDT Applicable to [facility] only. Effective August 04 the lab will begin using a new chemistry analyzer. HsTroponin methodology, reference ranges and critical values have changed. us Henry Chaidez APRN LAB BLOOD ORDERABLES Final Resu lt Performing Organization Address [facility]/ZIP Co de Phone Number [facility] [address] [phone] * PROBNP (10/16/2024 8:41 PM EDT) [facility] ProBNP (pg/mL) 65 16 - 452 pg/mL 10/16/2024 10:55 PM EDT [facility] Blood Venipuncture / Unknown 10/16/2024 8:41 PM EDT 10/16/2024 8:57 PM EDT [facility] - 10/16/2024 10:55 PM EDT As of October 01, 2024: NT-ProBNP is a new test on our [employer] Alinity Immunoassay analyzer. Please review new age and gender specific reference ranges. us Dedra Mart MD LAB BLOOD ORDERABLES Final Resul t Performing Organization Address City/[facility]/ZIP Co de Phone Number [facility] [address] [place] [address], [facility] [phone] * Magnesium (10/16/2024 8:41 PM EDT) Magnesium 2.2 1.6 - 2.6 mg/dL 10/16/2024 9:23 PM EDT [facility] Blood Venipuncture / Unknown 10/16/2024 8:41 PM EDT 10/16/2024 8:57 PM EDT us Henry Chaidez INTERVENTION MANAGER LAB BLOOD ORDERABLES Final Resu lt [facility] [address] [phone] * (ABNORMAL) Comprehensive metabolic panel (10/16/2024 8:41 PM EDT) Sodium 134(L) 136 - 145 meq/L 10/16/2024 9:23 PM EDT [facility] Potassium 3.8 3.4 - 5.1 meq/L 10/16/2024 9:23 PM EDT [facility] Chloride 101 98 - 112 meq/L 10/16/2024 9:23 PM EDT [facility] CO2 25 22 - 29 meq/L 10/16/2024 9:23 PM EDT [facility] Calcium 8.5 8.4 - 10.2 mg/dL 10/16/2024 9:23 PM EDT [facility] Glucose 104 82 - 115 mg/dL 10/16/2024 9:23 PM EDT [facility] BUN 12.2 8.4 - 25.7 mg/dL 10/16/2024 9:23 PM EDT [facility] Creatinine 1.39(H) 0.72 - 1.25 mg/dL 10/16/2024 9:23 PM EDT [facility] BUN/Creatinine 9 8 - 20 10/16/2024 9:23 PM EDT [facility] eGFR (mL/min/1.73m2) 58(L) >=60 mL/min/1. 73m2 10/16/2024 9:23 PM EDT [facility] Albumin 3.0(L) 3.5 - 5.0 g/dL 10/16/2024 9:23 PM EDT [facility] Alkaline Phosphatase 52 40 - 150 U/L 10/16/2024 9:23 PM EDT [facility] ALT 8 <=45 U/L 10/16/2024 9:23 PM EDT [facility] Comment: ALT2 reagent used for testing does not contain P5P supplementation and therefore may miss ALT elevations in patients with B6 deficiency. This population may be as high as 10% in the [place], with risk factors including malabsorption, drug interactions, and alcoholic hepatitis. AST 15 11 - 34 U/L 10/16/2024 9:23 PM EDT [facility] Comment: AST2 reagent used for testing does not contain P5P supplementation and therefore may miss AST elevations in patients with B6 deficiency. This population may be as high as 10% in the [place], with risk factors including malabsorption, drug interactions, and alcoholic hepatitis. Total Bilirubin 0.5 0.2 - 1.2 mg/dL 10/16/2024 9:23 PM EDT [facility] Protein, Total 7.5 6.4 - 8.3 g/dL 10/16/2024 9:23 PM EDT [facility] Globulin 4.5(H) 2.5 - 4.1 g/dL 10/16/2024 9:23 PM EDT [facility] Anion Gap 12 4 - 12 10/16/2024 9:23 PM EDT [facility] A/G Ratio 0.7 0.7 - 1.9 10/16/2024 9:23 PM EDT [facility] Osmolality Calc 268.4 mOsm/kg 9:23 PM EDT [facility] Blood Venipuncture / Unknown 10/16/2024 8:41 PM EDT 10/16/2024 8:57 PM EDT us Henry Chaidez APRN LAB BLOOD ORDERABLES Final Resu lt [facility] [address] [phone] * XR wrist 2 views right (10/16/2024 [...] size is normal. IMPRESSION: Unremarkable portable chest. [facility] INTERVENTION MANAGER [facility] DIAGNOSTIC IMAGING ORDERABL ES Final Result * [...] dictated by Jose Webber MD Henry Chaidez INTERVENTION MANAGER [facility] DIAGNOSTIC IMAGING ORDERABL ES Final Result * [...] by Jose Webber MD Henry Chaidez APRN IM CT ORDERABLES Final Result * CT cervical [...] by Jose Webber MD Henry Chaidez APRN IM CT ORDERABLES Final Result * CT brain [...] by Jose Webber MD Henry Chaidez APRN [facility] CT ORDERABLES Final Result * EKG-SCANNED (10/16/2024) Narrative 10/16/2024 Ordered by an unspecified provider. us Default Scanning Provider SCAN ORDERS Final Result from Last 3 Months Insurance [facility] Care Teams Greaser And Oiler Relationship Specialty Start Date End Date Herminio Prather DO PCP - General Internal Medicine 05/02/24
--- OUTSIDE RECORDS SUMMARY | 2024-11-02 09:29 | XMS_ITS | Encounter Summary ---
Author Organization [employer] Address [address] [place] [id number] Care Team Providers Care Rubber Cutter Name Role Phone Herminio Prather DO Primary Care Provider [phone] Encounter Details Date Type Department Care Team (Late st Contact Info) Description 07/05/2020 Transcribed Document [facility] [place] [address] ProviderEugenio MD [address] [place] [id number] Social History Tobacco Use Types Packs/Day Years Used Date Smoking Tobacco: Never Assessed Sex and Gender Information Value Date Recorded Sex Assigned at Male 11/07/2021 11:00 AM CDT Legal Sex Male 11:00 AM CDT Gender Identity Male 11/07/2021 11:00 AM CDT Sexual Orientation Not on file documented as of this encounter Miscellaneous Notes * Cerner Conversion Note - Eugenio ProviderMD - 07/05/2020 8:33 PM CLINICAL OUTCOMES MANAGER Patient: YASIR HERNANDEZ Age: 54 years Sex: Male : 1965 Associated Diagnoses: None Author: STEPHANIE VAZQUEZ MD Basic Information Additional information: Chief Complaint from Nursing Triage Note : Chief Complaint 07/05/2020 20:21 EST Chief Complaint Pt c/o bilateral lower extremity pain, swelling and ulcers x 4 weeks (Modified) . History of Present Illness 54-year-old male presented to the emergency department with bilateral lower extremity swelling. Patient states that he has had this for the last 4 weeks. He has seen his primary care physician for this, however it has been getting worse. The patient states that he has tried some water pills, however it has not worked. He also had round of antibiotics without any improvement. The patient states that he has been keeping his legs on the ground consistently while he was sitting. He has noticed some ulcers that have appeared on his shins. They have been draining some clear material. Denies any trauma to the legs. He is not having any shortness of breath or difficulty breathing. Denies any chest pain or palpitations. No headache or change in vision. No focal weakness. No fevers or chills. Review of Systems Constitutional symptoms: No fever, no weakness. Skin symptoms: No rash, Eye symptoms: Vision unchanged. Respiratory symptoms: No shortness of breath, Cardiovascular symptoms: Peripheral edema, no chest pain, no syncope. Gastrointestinal symptoms: No abdominal pain, no nausea, no vomiting. Musculoskeletal symptoms: No Muscle pain, no Joint pain. Neurologic symptoms: No headache, no dizziness. Hematologic/Lymphatic symptoms: Bleeding tendency negative, Health Status Allergies: Allergic Reactions (Selected) Severity Not Documented Penicillins- Hives and hives.. Medications: (Selected) Inpatient Medications Ordered Normal Saline Flush: 10 mL, IV Push, See Comment. Past Medical/ Family/ Social History Surgical history: No active procedure history items have been selected or recorded.. Family history: No family history items have been selected or recorded.. Social history: Social & Psychosocial Habits No Data Available . Problem list: Active Problems (1) Hypertension . Physical Examination Vital Signs Vital Signs/Vital Measures 07/05/2020 20:21 EST Systolic Blood Pressure 141 mmHg HI Diastolic Blood Pressure 91 mmHg HI Temperature Source Temporal artery scanning Temperature Mode Fahrenheit Temperature, Fahrenheit 97.2 Deg F Clinical Temperature, C 36.2 Deg C Peripheral Pulse Rate 96 bpm Respiratory Rate 16 Breaths/Min Oxygen Saturation 96 % Oxygen Therapy Mode Room air . General: Alert, no acute distress. Skin: Warm, no rash. Neck: Supple, no tenderness. Cardiovascular: Regular rate and rhythm, No murmur, Edema: Bilateral, lower extremity, pedal, pretibial, 2+, Capillary refill: Bilateral, lower extremity, < 2 seconds. Respiratory: Lungs are clear to auscultation, breath sounds are equal. Gastrointestinal: Soft, Nontender, Non distended. Musculoskeletal: Normal ROM, normal strength, no deformity. Neurological: Alert and oriented to person, place, time, and situation, No focal neurological deficit observed. Medical Decision Making Differential Diagnosis: Deep vein thrombosis, cellulitis, Venous stasis ulcer, dependent edema,. Rationale: 54-year-old male presented to the emergency department with dependent edema bilaterally. The patient does have some ulcers on his legs. There are some mild erythema surrounding. Concern for possible cellulitis. Work-up initiated.. Documents reviewed: Emergency department nurses' notes. Electronically signed by Neville Herring Conversion Account Executive [employer]working Cerner at 08/29/2022 9:26 PM CDT documented in this encounter Plan of Treatment Not on file documented as of this encounter Visit Diagnoses Not on filedocumented in this encounter Care Teams Rubber Cutter Relationship Specialty Start Date End Date Herminio Prather DO PCP - General Internal Medicine 05/02/24 documented as of this encounter
--- OUTSIDE RECORDS SUMMARY | 2024-11-02 09:29 | XMS_ITS | Encounter Summary ---
Author Organization [facility] [employer] Address [address] [place] [address] Care Team Providers Care Rail Loader Name Role Phone Herminio Prather DO Primary Care Provider [phone] Encounter Details Date Type Department Care Team (Latest Contact Info) Description 10/16/2024 Travel Social History Tobacco Use Types Packs/Day Years [...] on file documented as of this encounter Plan of Treatment Not on file documented as of this encounter Visit Diagnoses Not on filedocumented in this encounter Care Teams Rail Loader Relationship Specialty Start Date End Date Herminio Prather DO PCP - General Internal Medicine 05/02/24 documented as of this encounter
--- OUTSIDE RECORDS SUMMARY | 2024-11-02 09:29 | XMS_ITS | Encounter Summary ---
Author Organization [employer] Address [address] [place] [address] Care Team Providers Care Head Of Ict Name Role Phone Herminio Prather DO Primary Care Provider [phone] Encounter Details Date Type Department Care Team (Late st Contact Info) Description 10/21/2020 Transcribed Document [facility] [place] [address] ProviderEugenio MD [address] [place] [phone] Social History Tobacco Use Types Packs/Day Years Used Date Smoking Tobacco: Never Assessed Sex and Gender Information Value Date Recorded Sex Assigned at Male 11/07/2021 11:00 AM CDT Legal Sex Male 11:00 AM CDT Gender Identity Male 11/07/2021 11:00 AM CDT Sexual Orientation Not on file documented as of this encounter Miscellaneous Notes * Cerner Conversion Note - Historical ProviderMD - 10/21/2020 8:47 PM CDT CR Chest 2 Vws Ordered: 10/20/2020 Auth (Verified) Reason for Exam: soa 10/20/2020 16:15 10/21/2020 20:47 (BISI LAURA PA) Reviewed by Provider, No further action required X1 - no acute 10/20/2020 16:31 (CHILANGO CARMONA) Provider Review Required Electronically signed by Neville Herring Conversion Brace End [employer] Former Cerner at 08/29/2022 9:35 PM CDT documented in this encounter Plan of Treatment Not on file documented as of this encounter Visit Diagnoses Not on filedocumented in this encounter Care Teams Head Of Ict Relationship Specialty Start Date End Date Herminio Prather DO PCP - General Internal Medicine 05/02/24 documented as of this encounter
--- OUTSIDE RECORDS SUMMARY | 2024-11-02 09:29 | XMS_ITS | Encounter Summary ---
Author Organization [employer] Address [address] [place] [address] Care Team Providers Care Rural Health Consultant Name Role Phone Herminio Prather DO Primary Care Provider [phone] [phone] Encounter Details Date Type Department Care Team (Late st Contact Info) Description 07/06/2020 Transcribed Document [facility] [place] [facility] [place] [address] ProviderEugenio MD [address] [place] [phone] Social History Tobacco Use Types Packs/Day Years Used Date Smoking Tobacco: Never Assessed Sex and Gender Information Value Date Recorded Sex Assigned at Male 11/07/2021 11:00 AM CDT Legal Sex Male 11:00 AM CDT Gender Identity Male 11/07/2021 11:00 AM CDT Sexual Orientation Not on file documented as of this encounter Miscellaneous Notes * Cerner Conversion Note - Historical ProviderMD - 07/06/2020 8:41 PM HEAT TRANSFER TECHNICIAN CR Chest 1 Vw Portable Ordered: 07/05/2020 Modified Reason for Exam: Cough 07/06/2020 10:52 07/06/2020 20:41 (BISI LAURA PA) Reviewed by Provider, No further action required X1 - clinically do0es no have pna 07/06/2020 15:11 (CHILANGO CARMONA) Provider Review Required documented in this encounter Plan of Treatment Not on file documented as of this encounter Visit Diagnoses Not on filedocumented in this encounter Care Teams Rural Health Consultant Relationship Specialty Start Date End Date Herminio Prather DO PCP - General Internal Medicine 05/02/24 documented as of this encounter
--- OUTSIDE RECORDS SUMMARY | 2024-11-02 09:29 | XMS_ITS | Encounter Summary ---
Author Organization [employer] Address [address] [place] [address] Care Team Providers Care Leather Staker Name Role Phone Herminio Prather DO Primary Care Provider [phone] Encounter Details Date Type Department Care Team (Late st Contact Info) Description 07/05/2020 Transcribed Document [facility] [place] Family Medicine [address] [place] [address] ProviderEugenio MD [address] [place], [place] [phone] Social History Tobacco Use Types Packs/Day Years Used Date Smoking Tobacco: Never Assessed Sex and Gender Information Value Date Recorded Sex Assigned at Male 11/07/2021 11:00 AM CDT Legal Sex Male 11:00 AM CDT Gender Identity Male 11/07/2021 11:00 AM CDT Sexual Orientation Not on file documented as of this encounter Miscellaneous Notes * Cerner Conversion Note - Historical ProviderMD - 07/05/2020 7:58 PM AUTOMATIC SPINNING LATHE SETTER [place] Suicide Severity Rating Scale (C-SSRS) Entered On: 07/05/2020 22:51 EST Performed On: 07/05/2020 22:50 EST by Alyce Call Rn [place] Suicide Severity Rating Scale (C-SSRS) CSSRS Past Month Wish to be : No CSSRS Past Month Suicidal Thoughts : No CSSRS Lifetime Suicide Behavior : No Suicide Severity Rating Score : 0 Suicide Severity Rating : No Additional Care Required at this time Alyce Call Rn - 07/05/2020 22:50 EST documented in this encounter Plan of Treatment Not on file documented as of this encounter Visit Diagnoses Not on filedocumented in this encounter Care Teams Leather Staker Relationship Specialty Start Date End Date Herminio Prather DO PCP - General Internal Medicine 05/02/24 documented as of this encounter
--- OUTSIDE RECORDS SUMMARY | 2024-11-02 09:29 | XMS_ITS | Encounter Summary ---
Author Organization [facility] Address [address] [place] [id number] Care Team Providers Care Cmm Inspector Name Role Phone Herminio Prather DO Primary Care Provider [phone] Encounter Details Date Type Department Care Team (Late st Contact Info) Description 07/29/2020 Transcribed Document [facility] [place] [facility] [place] [facility] [place] [address] ProviderEugenio MD [address] [place] [id number] Social History Tobacco Use Types Packs/Day Years Used Date Smoking Tobacco: Never Assessed Sex and Gender Information Value Date Recorded Sex Assigned at Male 11/07/2021 11:00 AM CDT Legal Sex Male 11:00 AM CDT Gender Identity Male 11/07/2021 11:00 AM CDT Sexual Orientation Not on file documented as of this encounter Miscellaneous Notes * Cerner Conversion Note - Eugenio ProviderMD - 07/29/2020 1:30 PM CDT DATE OF ADMISSION: 2020 ADMITTING PHYSICIAN: JING CABEZAS III, MD HISTORY: This is a 55-year-old male, resident of [place], [place], we are seeing on referral from vascular surgeon, Dr. Niranjan Macdonald. The concern is massive edema in his bilateral lower extremities with superficial ulceration. Mr. Mehta indicates that over the course of the past 3 or 4 months, he has had progressive swelling of his bilateral lower extremities along with a weight gain of some 40 pounds. It is only in the last month that he actually started having breakthrough transudate in his bilateral lower extremities. Dr. Macdonald's notes indicate that he performed a venous scan, was basically a DVT rule out and no significant reflux was noted on that particular scan. There was no presence of clot. The patient did not appear to be a surgical candidate, so he was referred on to us. He has not been, and is not currently, using any form of compression. Dr. Macdonald had arranged for the patient to get arterial duplex scanning to determine his suitability for compression, but apparently the patient never completed that. The patient's only previous history is a right hip replacement in 2005. His only ongoing medications are gabapentin and oxycodone for, what is called, neuropathic pain. The patient lives with others. Not currently employed. He is an ongoing smoker. He smokes upwards of 2 packs a day; however, he denies any significant alcohol consumption. He has become progressively inactive over the years, particularly in the year 2020. He gets short of breath on exertion. He does not claudicate. He does not use oxygen or positive pressure at home. REVIEW OF SYSTEMS: Largely denying. Apparently has a history of hepatitis type C, treatment status uncertain. He denies ever having ischemic heart disease. He has had no coronary intervention. He denies being diabetic. As far as he knows, he does not have any advanced renal disease. He denies any significant gastrointestinal disease. No other skin conditions. No stroke or TIA-like event. He does complain, however, of hyperesthesia in his lower extremities. The patient indicates he does sleep in the bed. He does not sleep sitting up with his feet on the ground. He also denies having active smothering when he is supine. PHYSICAL EXAMINATION: GENERAL: Adult male, did not appear in acute distress. In fact, he appeared somewhat drowsy throughout the entire interaction, but was able to form coherent and goal-directed speech. VITAL SIGNS: He is 5 feet 7 inches tall, 345 pounds, afebrile, blood pressure 129/91. I was significantly concerned about his frequent attention lapses that I wondered if he was getting hypoxic. Therefore, we reposed him fully supine. His pulse oximeters remained in the mid 90% with that. He did not show any actual apnea. The patient as noted is quite obese. He has sort of a generalized anasarca, but particularly in his bilateral lower extremities, where he has fairly tense woody-like edema. The edema was so dense that I really could not palpate pulses, and we had difficulty hearing any blood flow at all with the Doppler. Leg measurements were pretty much congruent. There was no striking difference one calf to the other. The patient had numerous shallow open wounds on his bilateral lower extremities, but predominantly on the left calf. On the right, there was fragile epithelium with transudate, but no real erosion into the skin depth. None of his wounds actually penetrated through the full dermis. Measurements are recorded separately. ASSESSMENT: A 55-year-old heavy smoker, nondiabetic, presents with engorged, swollen lymphedematous bilateral lower extremities. Per the patient, this is a relatively recent problem. The examination suggests has been going on a bit longer. At this point, we are not aware if the patient has any cardio-renal problems which would explain his significantly worsening edema. PLAN: We do need to go ahead and pursue getting him an arterial duplex with MANDO or TBI and a full formal venous reflux assessment. The patient says he is willing to do this. We are not able to put the patient in effective compression until the studies have been completed. For treatment today, we put Aquacel and wrap gauze over all weeping and open areas. We also recommended he get in touch with his primary care physician and discuss his edema. He certainly looks like he has an opportunity to respond to diuretics and probably needs more evaluation of his cardiorenal status. We will try to get him back here within 2 weeks' time hopefully having had his noninvasive vascular studies done. /[id number] MD ELZA Mcgee III/AQ / ELZA / MODL CC: MD Fernie Rubio documented in this encounter Plan of Treatment Not on file documented as of this encounter Visit Diagnoses Not on filedocumented in this encounter Care Teams Cmm Inspector Relationship Specialty Start Date End Date Herminio Prather DO PCP - General Internal Medicine 05/02/24 documented as of this encounter
--- OUTSIDE RECORDS SUMMARY | 2024-11-02 09:29 | XMS_ITS | Encounter Summary ---
Author Organization [facility] [employer] Address [address] [place] [id number] Care Team Providers Care Solder Sprayer Name Role Phone Karishma Prather DO Primary Care Provider [phone] Encounter Details Date Type Department Care Team (Late st Contact Info) Description 08/25/2018 Transcribed Document [facility] [place] [facility] [place] [address] ProviderEugenio MD [address] [place] [address] [id number] Social History Tobacco Use Types Packs/Day Years Used Date Smoking Tobacco: Never Assessed Sex and Gender Information Value Date Recorded Sex Assigned at Male 11/07/2021 11:00 AM CDT Legal Sex Male 11:00 AM CDT Gender Identity Male 11/07/2021 11:00 AM CDT Sexual Orientation Not on file documented as of this encounter Miscellaneous Notes * Cerner Conversion Note - Eugenio ProviderMD - 08/25/2018 2:09 PM CDT Patient: YASIR HERNANDEZ Age: 53 years Sex: Male : 1965 Associated Diagnoses: Abscess, perirectal; Dysuria; Rectal pain Author: CISCO LAMAR DO Basic Information Time seen: Date 08/25/2018, Immediately upon arrival. History source: Patient. Arrival mode: Private vehicle. History limitation: None. Additional information: Chief Complaint from Nursing Triage Note : Chief Complaint 08/25/2018 13:36 EDT Chief Complaint c/o low back pain x 1 wk, rectal pain ? hemorrhoids x 4 days, dysuria x 2 days. Feels like can't completely empty bladder. Denies injury, no relief w/ OTC hemorrhoid tx or laxatives. . History of Present Illness The patient presents with dysuria and hesitancy. The onset was 1 days ago. The course/duration of symptoms is fluctuating in intensity. Radiating pain: none. The character of symptoms is burning. The degree at onset was minimal. The degree at present is moderate. The exacerbating factor is none. The relieving factor is none. Risk factors consist of none. Therapy today: none. The patient presents with rectal pain. The onset was 2 days ago. The course/duration of symptoms is worsening. The character of symptoms is sharp and stabbing. The degree of symptoms is moderate. There are exacerbating factors including bowel movement and bearing down. The relieving factor is rest. Risk factors consist of none. Prior episodes: none. Therapy today: none. Associated symptoms: none. Review of Systems Additional review of systems information: All other systems reviewed and otherwise negative. Health Status Allergies: Allergic Reactions (Selected) Severity Not Documented Penicillins- Hives and hives.. Medications: (Selected) Inpatient Medications Ordered Normal Saline Flush: 10 mL, IV Push, See Comment Sodium Chloride 0.9% bolus: 1,000 mL, 1,000 mL/Hr, IV Piggyback, 1-Time Zofran: 4 mg, IV Push, 1-Time morphine: 4 mg, IV Push, 1-Time, per nurse's notes. Past Medical/ Family/ Social History Medical history Reviewed as documented in chart. Gastrointestinal: hep C. Surgical history: No active procedure history items have been selected or recorded., Reviewed as documented in chart. Family history: No family history items have been selected or recorded., Reviewed as documented in chart. Social history: Social & Psychosocial Habits No Data Available , Reviewed as documented in chart. Problem list: No qualifying data available , per nurse's notes. Physical Examination Vital Signs Vital Signs/Vital Measures 08/25/2018 13:36 EDT Temperature Source Oral Temperature Mode Fahrenheit Temperature, Fahrenheit 98.2 Deg F Clinical Temperature, C 36.8 Deg C Peripheral Pulse Rate 101 bpm HI Respiratory Rate 24 Breaths/Min HI Blood Pressure Location Arm, right lower Blood Pressure Source Non-Invasive BP Device Systolic Blood Pressure 133 mmHg Diastolic Blood Pressure 73 mmHg Oxygen Saturation 95 % Oxygen Therapy Mode Room air . Measurements 08/25/2018 13:36 EDT Height Source Stated Height Entry Format Ajay Height/Length, [place] (ft) 5 ft Height/Length [place] 7 Inch CLINICALHEIGHT 170.18 cm Davis Body Weight 65.16 kg Weight Source, ED Critical estimated dosing weight Weight Entry Format Ajay Weight Tanzanian lb 300 lb CLINICALWEIGHT 136.36 kg Body Surface Area (BSA) 2.4 m2 Body Mass Index 47.1 kg/m2 >HHI . Oxygen Saturation 08/25/2018 13:36 EDT Oxygen Saturation 95 % . General: Alert, no acute distress. Skin: Warm, dry, pink, intact, no pallor, no rash, normal for ethnicity. Head: Normocephalic, atraumatic. Neck: Supple, trachea midline, no tenderness, no JVD, no carotid bruit. Eye: Pupils are equal, round and reactive to light, extraocular movements are intact, normal conjunctiva, vision unchanged. Ears, nose, mouth and throat: Tympanic membranes clear, oral mucosa moist, no pharyngeal erythema or exudate. Cardiovascular: Regular rate and rhythm, No murmur, Normal peripheral perfusion, No edema. Respiratory: Lungs are clear to auscultation, respirations are non-labored, breath sounds are equal, Symmetrical chest wall expansion. Chest wall: No tenderness, No deformity. Back: Nontender, Normal range of motion, Normal alignment, no step-offs. Musculoskeletal: Normal ROM, normal strength, no tenderness, no swelling, no deformity. Gastrointestinal: Soft, Nontender, Non distended, Normal bowel sounds, No organomegaly, brown stool on gloved finger. There is redness and swelling of the left buttox and perianal region and is tender to palpation. NO obvious fluctuance or mass. . Genitourinary: No tenderness, no discharge, normal external genitalia, no lesions. Neurological: Alert and oriented to person, place, time, and situation, No focal neurological deficit observed, CN II-XII intact, normal sensory observed, normal motor observed, normal speech observed, normal coordination observed. Lymphatics: No lymphadenopathy. Psychiatric: Cooperative, appropriate mood & affect, normal judgment, non-suicidal. Medical Decision Making Differential Diagnosis: Urinary tract infection, cystitis, pyelonephritis, ureterolithiasis, urethritis, prostatitis, abdominal pain, urinary retention. Differential Diagnosis: Rectal pain, thrombosed hemorrhoid, external hemorrhoid, chloe-rectal abscess, perineal abscess, anal fissure, fecal impaction, rectal foreign body. Documents reviewed: Emergency department nurses' notes, emergency department records, prior records. Results review: Lab results : Lab Results 08/25/2018 14:31 EDT Sodium Level 138 mmol/L Potassium Level 4.1 mmol/L Chloride Level 102 mmol/L Carbon Dioxide Level 26 mmol/L Anion Gap 14 Glucose Level 138 mg/dL HI Blood Urea Nitrogen 13 mg/dL Creatinine Level 1.40 mg/dL HI eGFR >60 mL/min/1.73m2 eGFR NonAfrican 53 mL/min/1.73m2 LOW Bun/Creatinine 8.7 Calcium Level 8.5 mg/dL Protein Total 7.3 Gram/dL Albumin Level 3.3 Gram/dL LOW Globulin 4.0 Gram/dL A/G Ratio 0.8 LOW Bilirubin Total 0.7 mg/dL Alk Phos 65 Units/Liter AST 17 Units/Liter ALT 15 Units/Liter LOW Lactic Acid Level 1.6 mmol/L WBC 12.4 K/uL HI RBC 4.68 Million/uL Hgb 13.9 g/dL Hct 41.3 % MCV 88.2 fL MCH 29.7 pg MCHC 33.7 Gram/dL Platelet Count 270 K/uL MPV 9.6 fL RDW 13.0 % Neut % 77.1 % HI Neut # 9.57 K/uL HI Lymph % 14.7 % LOW Lymph # 1.83 K/uL [place]berg % 7.4 % [place] # 0.92 K/uL Eos % 0.6 % Eos # 0.07 Baso % 0.2 % Baso # 0.03 Slide Review No PT 10.3 Second(s) INR 1.0 PTT 28.2 Second(s) Procalcitonin 0.25 ng/mL 08/25/2018 14:08 EDT Urine Type U CleanCatch Urine Color Yellow Urine Appearance Clear Urine Specific [place] 1.007 Urine pH Dipstick 7.0 Urine Leukocyte Esterase Trace Urine Nitrite Negative Urine Protein Dipstick Negative Urine Glucose Dipstick Negative Urine Ketones Dipstick Negative Urine Urobilinogen Dipstick 0.2 EU/dL Urine Bilirubin Dipstick Negative Urine Blood Dipstick Negative Ur RBC 0-2 /HPF Ur WBC 0-2 /HPF Ur Squamous Epithelial Cells 0-2 /HPF Ur Transitional Epi Cells 0-2 . Radiology results: Radiology Results (Last 48 hours) [id number] -- 08/25/2018 12:34 CT Abdomen Pelvis WO (08/25/2018 14:40) Result: CT SCAN OF THE ABDOMEN AND PELVIS WITHOUT CONTRAST 08/25/2018 2:08 PMHISTORY: Right upper flank pain.COMPARISON: None.PROCEDURE: Axial images were obtained from the lung bases to the pubicsymphysis by computed tomography. This study was performed withtechniques to keep radiation doses as low as reasonably achievable,(ALARA). Individualized dose reduction techniques using automatedexposure control or adjustment of mA and/or kV according to the patientsize were employed.FINDINGS: ABDOMEN: There is a trace pericardial effusion. The gallbladder iscontracted. There is no hydronephrosis or nephrolithiasis. The solidorgans are otherwise unremarkable. There is no free fluid or adenopathy.There is a small umbilical hernia containing omental fat.PELVIS: The appendix is normal. The urinary bladder is distended. Detailis limited from right hip hardware. There is no free fluid oradenopathy. Rectal thickening is noted.IMPRESSION: No hydronephrosis or nephrolithiasis.Rectal wall thickening of uncertain significance. Clinical correlationrecommended. . The patient presents with rectal pain and dysuria. He is able to urinate but states he has hesitancy. His urinalysis did not show any infection. HIs rectal exam did demonstrate redness and swelling of the left buttox and perirectal region. His CT demonstraetd perirectal thickening. I was unable to palpate any obvious abscess on exam. I discussed the patient with colorectal [facility] and they agreed to see him in the office tomorrow to evaluate and possibly drain the infection. Consideration for admission was given and discussed as an option with the patient. His pain is controlled and requested to go home. He is not a diabetic and otherwise healthy apart from history of stable hep. C. He clinically does not appear septic at this time. I did send blood cultures as when he initially presented he was in pain, with a heart rate of 101, which quickly improved to 82 before any fluids were given. His blood pressure has been normal. No fever. WBC 12.4, slightly elevated. lactic acid normal. I instructed him to return to the ER immediately if he develops worsening pain, fever, dizziness, or any new symptoms. Incidentally on the CT, the radiologist reported trace pericardial effusion. On examination, the patient has no subjective symptoms such as chest pain or shortness of breath. His objective examination is normal apart from the perirectal tenderness and redness. I informed the patient of the finding of trace pericardial effusion and to follow up with his pcp and cardiology to have an echocardiogram in 2-3 days. Return immediately for any shortness of breath, chest pain, or dizziness. Clinically, there is no evidence of clincially significant pericardial effusion. Reexamination/ Reevaluation Time: 08/25/2018 16:42:00 . Vital signs Reviewed Results: results included from flowsheet : Vital Measurements(Date Range: 08/24/2018 0:00 EDT - 08/25/2018 16:43 EDT) Course: improving. Pain status: decreased. Assessment: exam improved. Impression and Plan Diagnosis Abscess, perirectal - Discharge, Emergency medicine, Medical Dysuria - Discharge, Emergency medicine, Medical Rectal pain - Discharge, Emergency medicine, Medical Plan Condition: Improved, Stable. Disposition: Discharged Admit/Transfer/Discharge: Discharge (Order): Start: 08/25/2018 16:45 EDT, Discharge to: Home. Prescriptions: Prescription [facility]: Colace 100 mg oral capsule (Prescribe): 1 Cap, Oral, BID, PRN: as needed for constipation, 20 Cap, 0 Refill(s). Patient was given the following educational materials: Perirectal Abscess. Follow up with: Patient Resource Center Within 2 to 3 days Please contact the Patient Resource Center at if you need assistance finding a Primary Care Provider in the future. ; FAMILY (REF) NO Within 2 to 3 days; NO PRIM DR ORTEGA Within 2 to 3 days; KARISHMA PIÑA Within in AM [facility]orectal [facility] is expecting you and will see you tomorrow. , KARISHMA PIÑA Within in AM Colorectal [facility] is expecting you and will see you tomorrow.; NO PRIM DR ORTEGA Within 2 to 3 days; Patient Resource Center Within 2 to 3 days Please contact the Patient Resource Center at if you need assistance finding a Primary Care Provider in the future. ; FAMILY (REF) NO Within 2 to 3 days. Counseled: Patient. documented in this encounter Plan of Treatment Not on file documented as of this encounter Visit Diagnoses Not on filedocumented in this encounter Care Teams Solder Sprayer Relationship Specialty Start Date End Date Karishma Prather DO PCP - General Internal Medicine 05/02/24 documented as of this encounter
--- OUTSIDE RECORDS SUMMARY | 2024-11-02 09:29 | XMS_ITS | Encounter Summary ---
Author Organization [facility] [employer] Address [address] [place] [id number] Care Team Providers Care Cheese Weigher Name Role Phone Herminio Prather DO Primary Care Provider [phone] Encounter Details Date Type Department Care Team (Late st Contact Info) Description 10/20/2020 Transcribed Document [facility] Family Medicine Formerly [facility] [place] [address] ProviderEugenio MD [facility]ly [facility] [place], [place] [id number] Social History Tobacco Use Types Packs/Day Years Used Date Smoking Tobacco: Never Assessed Sex and Gender Information Value Date Recorded Sex Assigned at Male 11/07/2021 11:00 AM CDT Legal Sex Male 11:00 AM CDT Gender Identity Male 11/07/2021 11:00 AM CDT Sexual Orientation Not on file documented as of this encounter Miscellaneous Notes * Cerner Conversion Note - Eugenio ProviderMD - 10/20/2020 2:43 PM CDT ED Triage Entered On: 10/20/2020 14:53 EDT Performed On: 10/20/2020 14:50 EDT by Jaqueline Chacon Flex Team spindraw operator Triage Across the Room Chief Complaint : pt c/o SOA with edema to BLE and excessive weight gain for last 2 months, pt also has wounds to BLE , seen in august by WC and not any better, Triage Date/Time : 10/20/2020 14:50 EDT Jaqueline Chacon Flex Team Rn - 10/20/2020 14:50 EDT DCP GENERIC CODE Tracking Acuity : 2 - Emergent Tracking Group : [facility] ED Jaqueline Chacon Flex Team Rn - 10/20/2020 14:50 EDT Mode of Arrival : Wheelchair Transported to ED by : Private vehicle To Room Via : Wheelchair Accompanied By : Spouse ED Vital Signs : Document Height & Weight : Document ED Allergies : Document ED Reason for Visit : Document Tetanus Immunization : Unknown Cube Machine Tender Needed : No Jaqueline Chacon Flex Team Rn - 10/20/2020 14:50 EDT Infectious Disease History Has the patient ever been tested for COVID-19? : No, Patient stated Does patient have symptoms of COVID-19? : No COVID19 Screening : No Experiencing Infectious Disease Symptoms : No symptoms Physical contact outside [place] in the last 30 days : No Infectious Disease History : Hepatitis C, TB Tuberculosis Symptoms : None Jaqueline Chacon Flex Team Rn - 10/20/2020 14:50 EDT Vital Signs ED Temperature Source : Oral Temperature Mode : Fahrenheit Temperature, Fahrenheit : 97.3 Deg F ED Pain : Yes Clinical Temperature, C : 36.3 Deg C Oxygen Therapy Mode : Room air Peripheral Pulse Rate : 97 bpm Respiratory Rate : 18 Breaths/Min Systolic Blood Pressure : 130 mmHg Diastolic Blood Pressure : 94 mmHg (HI) Oxygen Saturation : 93 % (LOW) Jaqueline Chacon Flex Team Rn - 10/20/2020 14:50 EDT Allergy (As Of: 10/20/2020 14:53:37 EDT) Allergies (Active) penicillins Estimated Onset Date: Unspecified ; Reactions: Hives, Hives ; Created By: [email or web address]; Reaction Status: Active ; Category: Drug ; Substance: penicillins ; Type: Allergy ; Updated By: Contributor_[email or web address]; Reviewed Date: 10/20/2020 14:51 EDT Diagnosis Control ED (As Of: 10/20/2020 14:53:37 EDT) Problems(Active) Hypertension (SNOMED CT :1979238217 ) Name of Problem: Hypertension ; Recorder: LOR STACK Rn; Confirmation: Confirmed ; Classification: Medical ; Code: [id number] ; Contributor System: ImageBrief ; Last Updated: 07/05/2020 20:22 EST ; Life Cycle Date: 07/05/2020 ; Life Cycle Status: Active ; Vocabulary: SNOMED CT Diagnoses(Active) Edema - Leg Date: 10/20/2020 ; Diagnosis Type: Reason For Visit ; Confirmation: Complaint of ; Clinical Dx: Edema - Leg ; Classification: Medical ; Clinical Service: Non-Specified ; Code: PNED ; Probability: 0 ; Diagnosis Code: [id number] Shortness of breath Date: 10/20/2020 ; Diagnosis Type: Reason For Visit ; Confirmation: Complaint of ; Clinical Dx: Shortness of breath ; Classification: Medical ; Clinical Service: Non-Specified ; Code: PNED ; Probability: 0 ; Diagnosis Code: [id number] Wound infection - uncomplicated Date: 10/20/2020 ; Diagnosis Type: Reason For Visit ; Confirmation: Complaint of ; Clinical Dx: Wound infection - uncomplicated ; Classification: Medical ; Clinical Service: Non-Specified ; Code: PNED ; Probability: 0 ; Diagnosis Code: [id number] ED Height and Weight Height Source : Stated Height Entry Format : [place] Height, Feet : 5 ft(Converted to: 152 cm, 60 Inch) Height, Inches : 7 Inch(Converted to: 0 ft 7 Inch, 17.78 cm) Clinical Height : 170.18 cm Weight Source, ED : Critical estimated dosing weight Weight Entry Format : [place] Weight, Pounds : 359 lb Clinical Dosing Weight : 163.18 kg Body Surface Area (BSA) : 2.6 m2 Body Mass Index : 56.3 kg/m2 (>HHI) [place] Body Weight (IBW) : 65.16 kg Jaqueline Chacon Flex Team Rn - 10/20/2020 14:50 EDT Pain Assessment Pain Assessment : Initial assessment Pain Scale Used : 0-10 Scale Location : Legs, bilateral Jaqueline Chacon Flex Team Rn - 10/20/2020 14:50 EDT Pain Scale Intensity : 8 Jaqueline Chacon Flex Team Rn - 10/20/2020 14:50 EDT Image 4 - Images currently included in the form version of this document have not been included in the text rendition version of the form. documented in this encounter Plan of Treatment Not on file documented as of this encounter Visit Diagnoses Not on filedocumented in this encounter Care Teams Cheese Weigher Relationship Specialty Start Date End Date Herminio Prather DO PCP - General Internal Medicine 05/02/24 documented as of this encounter
--- OUTSIDE RECORDS SUMMARY | 2024-11-02 09:29 | XMS_ITS | Data Portability ---
Author Organization [facility] Address [address] [facility] [address] [place] [address] Care Team Providers Care Laserist Name Role Phone DENNIS SANTOS Primary Care Provider USMAN SANDERSON Referring Provider Unavailable Assessment Encounter Date Assessment Date Assessment LastModified by Organization Details LastModified Time 04/18/2023 04/18/2023 HPI: This is a 57-year-old gentleman with low back pain He has chronic, axial low back pain. Denies incontinence or cauda equina symptoms. Denies any symptoms of radiculopathy. Pain is focally located in the back. Worse with standing and walking. Better with sitting. He underwent ARABELLA's in the past with benefit. No prior rhizotomy. He was seen in the past at a pain clinic by Dr. Harrison, was prescribed high-dose pain medication including oxycodone 15 mg. He was incarcerated recently and has not had any opioid medication since then. He participates in home exercise program from his doctor 4 days/week, 15 minutes/day, no benefit for his low back pain. He has done this for over 6 weeks within the last 6 months, began in July. Anticoagulants: None PMHx: Hyperlipidemia INJ Hx: ARABELLA's in the past PSHx/Surgical Evaluation: No prior back surgery IMAGING: MRI L-spine 2016 Diffuse, severe disc desiccation throughout the lumbar spine Retrolisthesis of L5 on S1 L1-L2 WNL L2-L3 disc bulge with small protrusion, minimal canal narrowing L3-L4 disc bulge with facet disease and flavum hypertrophy, mild canal narrowing, mild to moderate foraminal narrowing L4-L5 disc osteophyte complex and facet disease, fluid between the facets suggesting motion, flavum hypertrophy, mild to moderate canal narrowing and foraminal narrowing L5-S1 disc bulge with central disc protrusion, moderate facet disease, moderate foraminal narrowing The above image findings were discussed with the patient. Current medications include NSAIDs. The patient feels that they receive inadequate analgesia and activity improvement with the medication. The patient denies side effects from the medications. UDS was not obtained. ORT, PHQ-9 and DEBBIE were reviewed today. MAMADOU report was reviewed today and is appropriate. Based upon the above I would consider the patient to be High risk for opioid therapy. PT The patient has participated in a physician directed home exercise program daily for over six weeks within the last six months for their pain without resolution ASSESSMENT/PLAN This is a 57-year-old gentleman with axial low back pain I recommend lumbar flexion-extensio n x-ray and lumbar medial branch block L3-L5 bilaterally for his axial back pain. We will proceed to rhizotomy if this is beneficial. If he has instability on his flexion-extensio n x-ray, recommend consideration of surgical referral. External records were reviewed and discussed as above, including imaging, clinical notes, and relevant labs. 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 The electronic translation of spoken language may permit erroneous or at times nonsensical words of phrases to be inadvertently transcribed; Although I have reviewed the note for such errors, some may still exist. [email or web address] Not available 04/18/2023 17:42:44 Plan of Treatment Reminders Order Date Submit Date Provider Last Modified By Organization Details Last Modified Time Details Appointments None recorded. Lab None recorded. Referral None recorded. Procedures medial branch block, lumbar (PROC) - #1 LMBB B/L L3-5 with in [place]- no sedation 2022 023 [email or web address] Not available 4 13:23:21 Surgeries None recorded. Imaging XR, lumbosacral spine, 4 or more view - AP/LAT/FLEX &EXT 2022 023 [email or web address] Not available 3 08:03:41 Medication Orders None recorded. Patient TargetsNo targets recorded. Patient InstructionsNo instructions recorded. Reason for Referral None Reported. Problems Name Problem SNOMED Code Status Onset Date Resolution Date Notes Provider Name and Address Organization Details Recorded Time Lumbar spondylosis 531004857 Active 2022 SHIRAZ [facility] 3 10:09:01 Lumbar radiculopathy 758549071 Active 2022 SHIRAZ [facility] 3 10:09:01 Problem Notes None recorded. Medical Equipment None Reported. Allergies Allergen ID Allergen Name Allergen Category Reaction Reaction Severity Criticality Documentation Date Start Date Code Code System Note Provider Name and Address Organization Details Recorded Time 063901 Product containin g penicilli n (product) medicatio n Not available Not available Not available 04/18/2023 59313 [id number] SNOMED SHIRAZ Franklin [facility] 3 10:03:39 Medications Name Sig Start Date Stop Date Status Note LastModified by Organization Details LastModified Time celecoxib 200 mg capsule Take 1 capsule every day by oral route. 04/18 completed Not Available Not Available Not Available methocarbamo l 500 mg tablet TAKE 1 TABLET BY MOUTH EVERY 8 HOURS NEEDED FOR 10 DAYS 04/18 completed Not Available Not Available Not Available atorvastatin 20 mg tablet TAKE 1 TABLET BY MOUTH EVERY DAY 2022 active Not Available Not Available Not Avai lable meloxicam 15 mg tablet Take 1 tablet every day by oral route. active Not Available Not Available No t Available meloxicam 7.5 mg tablet TAKE 1 TABLET BY MOUTH EVERY DAY FOR 30 DAYS 04/18 completed Not Available Not Available Not Available gabapentin 800 mg tablet Take 1 tablet 4 times a day by oral route. 04/18 completed Not Available Not Available Not Available Vitals Date Recorded Body height Body mass index (BMI) Body weight Heart rate Oxygen saturation Oxygen saturation in Arterial blood by Pulse oximetry Systolic blood pressure Diastolic blood pressure Provider Name and Address Organization Details Last Updated DateTime 3 170.18 cm 43.9 kg/m2 974193. 86 g 78 /min 95 % 95 % 145 mm[Hg] 85 mm[Hg] Ema WELDON [facility] 3 10:09:29 Social History Question Answer Notes LastModified by Organizat ion Details LastModified Time Tobacco Smoking Status Current Every Day Smoker [facility] 04/18/2023 10:12:06 Do You Have An Advance Directive? No Information not available 04/18/2023 What Type Of Diet Are You Following? REGULAR Information not available 04/18/2023 What Is The Highest Grade Or Level Of School You Have Completed Or The Highest Degree You Have Received? 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 04/18/2023 Information not available 04/18/2023 What Is Your Relationship Status? Single Information not available 04/18/2023 How Much Tobacco Do You Smoke? 1 PPD Information not available 04/18/2023 Sex: Unknown Functional Status Question Answer Note LastModified by Organizat ion Details LastModified Time Do you use any illicit or recreational drugs? No Information not available 04/18/2023 What is your level of alcohol consumption? None Information not available 04/18/2023 Are you currently employed? No Information not available 04/18/2023 What is your exercise level? None Information not available 04/18/2023 Mental Status None recorded. Family History Nothing Reported. Medical History No medical history recorded. Past Encounters Encounter ID Performer Location Encounter Start Date Encounter Closed Date Diagnosis/Indication Diagnosis SNOMED-CT Code Diagnosis ICD10 Code Diagnosis Note [id number] ADAMA MATTHEWS MD [place] [address] [place] [address] 04/18/2023 09:05:11 04/18/2023 10:52:19 Lumbar spondylosis 850567724 M47.816 Health Concerns Section Related Observation LastModified by Organization Detai ls LastModified Time None Recorded Concern Status LastModified by Organization Details LastModified Time None Recorded Advance Directives Directive N: Payers Insurance Date Sequence Insurance Name Policy Number Policy Cary Covered Member ID Cary Member ID Guarantor Name 06/21/2023 2 [place] [employer] - FFS/TRADITIONA L Yasir Mehta [id number] Yasir Mehta 06/21/2023 1 PASSPORT BY [employer] (MEDICAID REPLACEMENT - HMO) Yasir Mehta [id number] Yasir Mehta Notes Date Note Type Note Provider Name and Address Organization Details Recorded Time 04/18/2023 text/html Low back painRep orted bypatient.Onset:date of onset: (gradually getting worse) Location:midline; pain is not radiating Duration:varies throughout the day Context:started without cause Pain Intensitycurrent pain level: 9/10; average pain level: 9/10; worst pain level: 10/10 Alleviating Factors:nothing helps Aggravating Factors:sitting; standing; lying down Associated Symptoms:no weakness Functional Assessment of ADLsLiving independently.;Diffic ulty bathing/grooming secondary to pain.;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 Prior Imaging:MRI (MRI Lumbar Spine [facility] 04/16/2017) Lumbar Surgery:none Interventional Treatment History:lumbar ESIs: no relief Physical Therapy:completed all recommended PT visits; complete more than 6weeks; response to therapy: no improvement in pain/symptoms; Currently participating in home exercise program(HEP): not effective; Date Started HEP: Days per week: 4; Patient active in HEP as tolerated Current Analgesics:Oxycodone ; Gabapentin Adverse Reactions:No nausea; No vomiting Other Conservative Treatments:heat: not effective; ice: not effective Prior Pain Management:yes: (Christy Gonzalez) Oswestry Disability Index (DEBBIE)Score/Date Completed: (76) ADAMA MATTHEWS MD [address] [place] [address], [id number] 04/18/2023 17:42:53
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
--- OUTSIDE RECORDS SUMMARY | 2024-11-02 09:29 | XMS_ITS | Encounter Summary ---
Author Organization [facility] [employer] Address [address] [place] [address] Care Team Providers Care Fashion Artist Name Role Phone Herminio Prather DO Primary Care Provider [phone] Encounter Details Date Type Department Care Team (Late st Contact Info) Description 07/05/2020 Transcribed Document [facility] [place] [facility] [place] [address] ProviderEugenio MD [facility] [place] [id number] Social History Tobacco Use Types Packs/Day Years Used Date Smoking Tobacco: Never Assessed Sex and Gender Information Value Date Recorded Sex Assigned at Male 11/07/2021 11:00 AM CDT Legal Sex Male 11:00 AM CDT Gender Identity Male 11/07/2021 11:00 AM CDT Sexual Orientation Not on file documented as of this encounter Miscellaneous Notes * Cerner Conversion Note - Historical ProviderMD - 07/05/2020 11:14 PM COMMAND AND CONTROL Electronically signed by Héctor Herring Conversion Instructional Design Specialist Cerner at 08/29/2022 9:40 PM CDT documented in this encounter Plan of Treatment Not on file documented as of this encounter Visit Diagnoses Not on filedocumented in this encounter Care Teams Fashion Artist Relationship Specialty Start Date End Date Herminio Prather DO PCP - General Internal Medicine 05/02/24 documented as of this encounter
--- OUTSIDE RECORDS SUMMARY | 2024-11-02 09:29 | XMS_ITS | Encounter Summary ---
Author Organization [employer] Address [address] [place] [address] Care Team Providers Care Editor Newspaper Name Role Phone Herminio Prather DO Primary Care Provider [phone] Encounter Details Date Type Department Care Team (Late st Contact Info) Description 08/25/2018 Transcribed Document [facility] [place] [address] [place] [address] ProviderEugenio MD [address] [place] [id number] Social History Tobacco Use Types Packs/Day Years Used Date Smoking Tobacco: Never Assessed Sex and Gender Information Value Date Recorded Sex Assigned at Male 11/07/2021 11:00 AM CDT Legal Sex Male 11:00 AM CDT Gender Identity Male 11/07/2021 11:00 AM CDT Sexual Orientation Not on file documented as of this encounter Miscellaneous Notes * Cerner Conversion Note - Eugenio ProviderMD - 08/25/2018 12:34 PM CDT ED Triage Entered On: 08/25/2018 13:42 EDT Performed On: 08/25/2018 13:36 EDT by YANDY CABRERA, CATERING TRUCK OPERATOR Triage Across the Room Triage Date/Time : 08/25/2018 12:36 EDT Chief Complaint : c/o low back pain x 1 wk, rectal pain ? hemorrhoids x 4 days, dysuria x 2 days. Feels like can't completely empty bladder. Denies injury, no relief w/ OTC hemorrhoid tx or laxatives. YANDY CABRERA RN - 08/25/2018 13:36 EDT DCP GENERIC CODE Tracking Acuity : 3 - Urgent Tracking Group : [facility] ED YANDY CABRERA RN - 08/25/2018 13:36 EDT Mode of Arrival : Ambulatory Transported to ED by : Private vehicle To Room Via : Ambulate Accompanied By : Sibling ED Vital Signs : Document Height & Weight : Document ED Allergies : Document ED Reason for Visit : Document YANDY CABRERA RN - 08/25/2018 13:36 EDT Infectious Disease History Infectious Disease History : Hepatitis C, TB Fever/Chills Last 48 Hours : No Travel To Regions with Travel Advisories : No Travel Outside [place] Within Last 30 Days : No Contact With Traveler to Advisory Region : No Tuberculosis Symptoms : None YANDY CABRERA RN - 08/25/2018 13:36 EDT Vital Signs ED Temperature Source : Oral Temperature Mode : Fahrenheit Temperature, Fahrenheit : 98.2 Deg F ED Pain : Yes Clinical Temperature, C : 36.8 Deg C Oxygen Therapy Mode : Room air Peripheral Pulse Rate : 101 bpm (HI) Respiratory Rate : 24 Breaths/Min (HI) Blood Pressure Location : Arm, right lower Blood Pressure Source : Non-Invasive BP Device Systolic Blood Pressure : 133 mmHg Diastolic Blood Pressure : 73 mmHg Oxygen Saturation : 95 % YANDY CABRERA RN - 08/25/2018 13:36 EDT Allergy (As Of: 08/25/2018 13:42:53 EDT) Allergies (Active) penicillins Estimated Onset Date: Unspecified ; Reactions: Hives, Hives ; Created By: Contributor_system HIST_VALEIRE; Reaction Status: Active ; Category: Drug ; Substance: penicillins ; Type: Allergy ; Updated By: Contributor_system HIST_VALERIE; Reviewed Date: 08/25/2018 13:40 EDT Diagnosis Control ED (As Of: 08/25/2018 13:42:53 EDT) Diagnoses(Active) Dysuria Date: 08/25/2018 ; Diagnosis Type: Reason For Visit ; Confirmation: Complaint of ; Clinical Dx: Dysuria ; Classification: Medical ; Clinical Service: Emergency medicine ; Code: PNED ; Probability: 0 ; Diagnosis Code: [id number] Rectal pain Date: 08/25/2018 ; Diagnosis Type: Reason For Visit ; Confirmation: Complaint of ; Clinical Dx: Rectal pain ; Classification: Medical ; Clinical Service: Emergency medicine ; Code: PNED ; Probability: 0 ; Diagnosis Code: [id number] ED Height and Weight Height Source : Stated Height Entry Format : Schley Height, Feet : 5 ft(Converted to: 152 cm, 60 Inch) Height, Inches : 7 Inch(Converted to: 0 ft 7 Inch, 17.78 cm) Clinical Height : 170.18 cm Weight Source, ED : Critical estimated dosing weight Weight Entry Format : Schley Weight, Pounds : 300 lb Clinical Dosing Weight : 136.36 kg Body Surface Area (BSA) : 2.4 m2 Body Mass Index : 47.1 kg/m2 (>HHI) [place] Body Weight (IBW) : 65.16 kg YANDY CABRERA RN - 08/25/2018 13:36 EDT Pain Assessment Pain Assessment : Initial assessment Pain Scale Used : 0-10 Scale Location : Rectal YANDY CABRERA RN - 08/25/2018 13:36 EDT Pain Scale Intensity : 10 YANDY CABRERA RN - 08/25/2018 13:36 EDT Image 4 - Images currently included in the form version of this document have not been included in the text rendition version of the form. Electronically signed by Neville Herring Conversion Senior Quality Control Technician Cerner at 08/29/2022 9:37 PM CDT documented in this encounter Plan of Treatment Not on file documented as of this encounter Visit Diagnoses Not on filedocumented in this encounter Care Teams Editor Newspaper Relationship Specialty Start Date End Date Herminio Prather DO PCP - General Internal Medicine 05/02/24 documented as of this encounter
--- OUTSIDE RECORDS SUMMARY | 2024-11-02 09:29 | XMS_ITS | Encounter Summary ---
Author Organization [facility] [employer] Address [address] [place] [address] Care Team Providers Care Coconut Boiler Name Role Phone Herminio Prather DO Primary Care Provider [phone] Encounter Details Date Type Department Care Team (Late st Contact Info) Description 07/05/2020 Transcribed Document [facility] [place] [facility] [place] [address] ProviderEugenio MD [address] [place] [address] Social History Tobacco Use Types [...] Conversion Note - Eugenio ProviderMD - 07/05/2020 11:25 PM JOB ANALYST [facility] [place] [address] YASIR HERNANDEZ :1965 Visit Time:07/05/2020 Your [...] 3 days Where: [place] [address]- Business (1) Follow Up with KASSIDY BYRD When Within 2 to 3 days Where: [facility] [address] [place] [address]- Business (1) Allergies penicillins (Hives, Hives) Immunizations [...] range between ( 0.0 and 7.0 ) [place] #: 0.61 K/uL -- Normal range between ( 0.16 and 1.00 ) Eos #: 0.34 -- Normal range between ( 0.00 and 5.00 ) [place] %: 10.0 % -- Normal range between [...] range between ( 0 and 125 ) Ultrasound 07/05/2020 9:50 PM US Veins LE Duplex BILAT: US Veins LE Duplex BILAT Education Materials Peripheral Edema Peripheral edema is [...] your health care provider. Medicines ??? Take kpgk-ogu-bymzydx and prescription medicines only as told by [...] 06/06/2005 Document Revised: 01/21/2019 Document Reviewed: 01/21/2019 [employer] Patient Education ?? 2020 [employer]. Emergency Awareness and Preventative Care STROKE is [...] Assistance with quitting is available by contacting 2-316-AROB-NOW. This is a free resource providing counseling, [...] was given the opportunity to ask questions. Patient/Auto Body Customizer Name: Patient/Auto Body Customizer Signature: Relationship to Patient: Clinician/Hospital Auto Body Customizer Signature: Please Provide a Telephone Number Where You Can Be Reached: Is it Permissible To Leave a Message? Date: documented in this encounter Plan of Treatment Not on file documented as of this encounter Visit Diagnoses Not on filedocumented in this encounter Care Teams Coconut Boiler Relationship Specialty Start Date End Date Herminio Prather DO PCP - General Internal Medicine 05/02/24 documented as of this encounter
--- OUTSIDE RECORDS SUMMARY | 2024-11-02 09:29 | XMS_ITS | Referral Summary ---
Author Organization [employer] Address [address] [place] [address] Care Team Providers Care Medical Affairs Leader Name Role Phone Herminio Prather DO Primary Care Provider +1 [phone] Encounters Date Type Department Care Team Description 10/16/2024 Travel 10/16/2024 7:50 PM EDT - 10/16/2024 10:22 PM EDT Emergency [facility] Emergency Department [address] [place] [address] Dedra Mart MD Bronchitis (Primary Dx); Syncope, unspecified syncope type; Bradycardia; Abrasion; Sprain and strain; Chronic kidney disease, unspecified CKD stage; Chronic pansinusitis Discharge Disposition: Left Against Medical Advice from Last 3 Months Allergies Active Allergy Reactions Criticality Noted Date Comments Penicillin Other (See Comments) Low 05/02/2024 Mother told him he was allergic when he was younger. Previously tolerated cephalexin, ceftriaxone in 2020 Medications benzonatate (TESSALON) 200 MG capsule Take 1 capsule (200 mg total) by mouth 3 (three) times daily as needed for cough for up to 7 days. 20 capsule 10/16/2024 10/24/19 25 Social History Tobacco Use Types Packs/Day Years [...] 10/16/2024 7:45 PM EDT Plan of Treatment Not on file Procedures Procedure Name Priority Date/Time Associated Diagnosis [...] in 5 days 10/21/2024 7:12 AM EDT [facility] Blood Venipuncture / Unknown 10/16/2024 9:29 PM EDT 10/16/2024 9:37 PM EDT us Dedra Mart MD MICROBIOLOGY - GENERAL ORDERABLE S Final Result Performing Organization Address City/[facility]/ZIP Co de Phone Number [facility] [address] [phone] * Lactic Acid with reflex (SJ) (10/16/2024 9:22 PM EDT) Lactic Acid Level (mmol/L) 0.9 0.5 - 2.2 mmol/L 10/16/2024 10:03 PM EDT [facility] Blood Venipuncture / Unknown 10/16/2024 9:22 PM EDT 10/16/2024 9:37 PM EDT us Dedra Mart MD LAB BLOOD ORDERABLES Final Resul t Performing Organization Address City/[facility]/ZIP Co de Phone Number [facility] [address] [phone] * (ABNORMAL) CBC with automated diff (10/16/2024 8:41 PM EDT) WBC 9.2(H) 4.2 - 9.1 K/ L 10/16/2024 8:59 PM EDT [facility] RBC 4.75 4.63 - 6.08 M/ L 10/16/2024 8:59 PM EDT [facility] Hemoglobin 14.6 13.7 - 17.5 GM/DL 10/16/2024 8:59 PM EDT [facility] Hematocrit 43.3 40.1 - 51.0 % 10/16/2024 8:59 PM EDT [facility] MCV 91 79 - 92 fL 10/16/2024 8:59 PM EDT [facility] MCH 30.7 25.7 - 32.2 pg 10/16/2024 8:59 PM EDT [facility] MCHC 33.7 32.3 - 36.5 GM/DL 10/16/2024 8:59 PM EDT [facility] RDW 13.4 11.6 - 14.4 % 10/16/2024 8:59 PM EDT [facility] Platelets 277 140 - 375 K/CU MM 10/16/2024 8:59 PM EDT [facility] MPV 9.4 9.4 - 12.4 fL 10/16/2024 8:59 PM EDT [facility] % Neutros 66 34 - 68 % 10/16/2024 8:59 PM EDT [facility] % Lymphs 24 22 - 53 % 10/16/2024 8:59 PM EDT [facility] % Monos 5 5 - 12 % 10/16/2024 8:59 PM EDT [facility] % Eos 3 1 - 7 % 10/16/2024 8:59 PM EDT [facility] % Baso 0 0 - 1 % 10/16/2024 8:59 PM EDT [facility] NRBC Absolute <0.01 0 - 0.012 K/ul 10/16/2024 8:59 PM EDT [facility] # Neutros 6.10(H) 1.78 - 5.38 K/ L 10/16/2024 8:59 PM EDT [facility] # Lymphs 2.25 1.32 - 3.57 K/ L 10/16/2024 8:59 PM EDT [facility] # Monos 0.49 0.30 - 0.82 K/ L 10/16/2024 8:59 PM EDT [facility] # Eos 0.25 0.04 - 0.54 K/ L 10/16/2024 8:59 PM EDT [facility] # Baso 0.03 0.01 - 0.08 K/ L 10/16/2024 8:59 PM EDT [facility] Immature Granulocytes-Re lative 1.10(H) 0.01 - 0.43 % 10/16/2024 8:59 PM EDT [facility] # IG 0.10(H) 0.00 - 0.03 K/uL 10/16/2024 8:59 PM EDT [facility] Blood Venipuncture / Unknown 10/16/2024 8:41 PM EDT 10/16/2024 8:57 PM EDT Narrative [facility] - 10/16/2024 8:59 PM EDT When [...] Atypical Lymph flag noted us Henry Chaidez APRN LAB BLOOD ORDERABLES Final Resu lt [facility] [address] [phone] * High Sensitivity Troponin I (10/16/2024 8:41 PM EDT) Troponin I High Sensitivity (pg/mL) <5.0 <=35 pg/mL 10/16/2024 9:28 PM EDT [facility] Blood Venipuncture / Unknown 10/16/2024 8:41 PM EDT 10/16/2024 8:57 PM EDT Narrative [facility] - 10/16/2024 9:28 PM EDT Applicable to [facility] only. Effective August 04 the lab will begin using a new chemistry analyzer. HsTroponin methodology, reference ranges and critical values have changed. us Henry Chaidez APRN LAB BLOOD ORDERABLES Final Resu lt Performing Organization Address [facility] Co de Phone Number [facility] [address] [phone] * PROBNP (10/16/2024 8:41 PM EDT) ProBNP (pg/mL) 65 16 - 452 pg/mL 10/16/2024 10:55 PM EDT [facility] Blood Venipuncture / Unknown 10/16/2024 8:41 PM EDT 10/16/2024 8:57 PM EDT Narrative [facility] - 10/16/2024 10:55 PM EDT As of October 01, 2024: NT-ProBNP is a new test on our [employer] Immunoassay analyzer. Please review new age and gender specific reference ranges. us Dedra Mart MD LAB BLOOD ORDERABLES Final Resul t Performing Organization Address [facility] Co de Phone Number [facility] [address] [phone] * Magnesium (10/16/2024 8:41 PM EDT) Magnesium 2.2 1.6 - 2.6 mg/dL 10/16/2024 9:23 PM EDT [facility] Blood Venipuncture / Unknown 10/16/2024 8:41 PM EDT 10/16/2024 8:57 PM EDT us Henry Chaidez APRN LAB BLOOD ORDERABLES Final Resu lt Performing Organization Address City/[facility] Co de Phone Number [facility] [address] [phone] * (ABNORMAL) Comprehensive metabolic panel (10/16/2024 8:41 PM EDT) Sodium 134(L) 136 - 145 meq/L 10/16/2024 9:23 PM [facility] Potassium 3.8 3.4 - 5.1 meq/L 10/16/2024 9:23 PM [facility] Chloride 101 98 - 112 meq/L 10/16/2024 9:23 PM [facility] CO2 25 22 - 29 meq/L 10/16/2024 9:23 PM [facility] Calcium 8.5 8.4 - 10.2 mg/dL 10/16/2024 9:23 PM [facility] Glucose 104 82 - 115 mg/dL 10/16/2024 9:23 PM [facility] BUN 12.2 8.4 - 25.7 mg/dL 10/16/2024 9:23 PM [facility] Creatinine 1.39(H) 0.72 - 1.25 mg/dL 10/16/2024 9:23 PM [facility] BUN/Creatinine 9 8 - 20 10/16/2024 9:23 PM [facility] eGFR (mL/min/1.73m2) 58(L) >=60 mL/min/1. 73m2 10/16/2024 9:23 PM [facility] Albumin 3.0(L) 3.5 - 5.0 g/dL 10/16/2024 9:23 PM [facility] Alkaline Phosphatase 52 40 - 150 U/L 10/16/2024 9:23 PM [facility] ALT 8 <=45 U/L 10/16/2024 9:23 PM [facility] Comment: ALT2 reagent used for testing does not contain P5P supplementation and therefore may miss ALT elevations in patients with B6 deficiency. This population may be as high as 10% in the [place], with risk factors including malabsorption, drug interactions, and alcoholic hepatitis. AST 15 11 - 34 U/L 10/16/2024 9:23 PM [facility] Comment: AST2 reagent used for testing does not contain P5P supplementation and therefore may miss AST elevations in patients with B6 deficiency. This population may be as high as 10% in the [place], with risk factors including malabsorption, drug interactions, and alcoholic hepatitis. Total Bilirubin 0.5 0.2 - 1.2 mg/dL 10/16/2024 9:23 PM EDT [facility] Protein, Total 7.5 6.4 - 8.3 g/dL 10/16/2024 9:23 PM EDT [facility] Globulin 4.5(H) 2.5 - 4.1 g/dL 10/16/2024 9:23 PM EDT [facility] Anion Gap 12 4 - 12 10/16/2024 9:23 PM EDT [facility] A/G Ratio 0.7 0.7 - 1.9 10/16/2024 9:23 PM EDT [facility] Osmolality Calc 268.4 mOsm/kg 9:23 PM EDT [facility] Blood Venipuncture / Unknown 10/16/2024 8:41 PM EDT 10/16/2024 8:57 PM EDT us Henry Chaidez APRN LAB BLOOD ORDERABLES Final Resu lt [facility] [address] [phone] * XR wrist 2 views right (10/16/2024 [...] by Jose Webber MD Henry Chaidez APRN [facility] DIAGNOSTIC IMAGING ORDERABL ES Final Result * [...] size is normal. IMPRESSION: Unremarkable portable chest. [facility] ORDERABL ES Final Result * [...] by Jose Webber MD Henry Chaidez APRN [facility] DIAGNOSTIC IMAGING ORDERABL ES Final Result * [...] by Jose Webber MD Henry Chaidez APRN [facility] CT ORDERABLES Final Result * CT cervical [...] and dictated by Jose Webber MD Henry Dm [facility] CT ORDERABLES Final Result * CT brain [...] Narrative 10/16/2024 Ordered by an unspecified provider. Default Scanning Provider SCAN ORDERS Final Result from Last 3 Months Insurance [employer] [facility] Care Teams Medical Affairs Leader Relationship Specialty Start Date End Date Herminio Prather DO PCP - General Internal Medicine 05/02/24
--- OUTSIDE RECORDS SUMMARY | 2024-11-02 09:29 | XMS_ITS | Clinical Summary ---
Author Organization [facility] Address [address] [place] [address] Phone Care Team Providers Care Superintendent Drilling Name Role Phone Esperanza Dunaway RN Unavailable Unavailable Conditions or Problems No information available. Medications No information available. Medications Administered No information available. Allergies, Adverse Reactions, Alerts No information available. Results No information available. Plan of Care No information available. Procedures No information available. Vital Signs No information available. Immunizations No information available. Advance Directives No information available.
--- OUTSIDE RECORDS SUMMARY | 2024-11-02 09:29 | XMS_ITS | Encounter Summary ---
Author Organization [employer] Address [address] [place] [address] Care Team Providers Care Head Of Strategy Name Role Phone Herminio Prather DO Primary Care Provider [phone] [phone] Encounter Details Date Type Department Care Team (Late st Contact Info) Description 08/17/[address] [facility] Family Medicine [facility] [place] [address] ProviderEugenio MD [address] [place] [id number] Social History Tobacco Use Types Packs/Day Years Used Date Smoking Tobacco: Never Assessed Sex and Gender Information Value Date Recorded Sex Assigned at Male 11/07/2021 11:00 AM CDT Legal Sex Male 11:00 AM CDT Gender Identity Male 11/07/2021 11:00 AM CDT Sexual Orientation Not on file documented as of this encounter Miscellaneous Notes * Cerner Conversion Note - Historical ProviderMD - 08/17/2020 6:24 PM CDT DATE OF CONSULTATION: 08/17/2020 A 55-year-old male we saw one time on July 21. He has not managed to return since then. He basically presents as classic venous leg ulcers and chronic lymphedema with excessive transudate. However, he also reported abruptly increasing edema for the balance of 2020, which had not been particularly addressed as of yet. I think also he had not been patronizing his local physician particularly well either. We need to get vascular studies both to rule out significant reflux and to eliminate significant arterial disease. However, the patient failed to do that. He had finally scheduled an appointment which was supposed to be for earlier today but got confused and thought the later clinic date was the time he was supposed to show up instead of the earlier vascular appointment time. Therefore, we still do not have any vascular studies performed. The patient has also rescheduled visits a couple of times. Today, he is accompanied by a female significant other who seems willing to help manage his appointments. Perhaps now we can get the definitive studies done that we need. He did go and see his primary care provider and was recently started on some additional diuretics for which he has a near-term followup. The patient's level of mental focus and attention this trip was a little bit better than it was his initial trip. Nevertheless, I still wonder if he is not experiencing some Pickwickian syndrome. In terms of his lower extremities, he continues to complain of heavy transudate, confirmed by his quality control inspector heading. When I examined him, he had been sitting in our exam chair, probably a good half an hour. An absorbent pad is under his calves. There were just a few small patches of transudate present and no flowing transudate was noted when I examined him. The skin quality overall is improved. The skin is not as inflamed as it had been. We can now classify five separate wounds on his left lower extremity, all on the anterior and anterolateral surfaces. These are punched-out wounds which do not appear to invade all the way to the subcutaneous tissue and as noted their surfaces are dry with him sitting with the wounds open to air and his legs extended. There is a wound on the posterolateral right calf. It is also relatively shallow but is draining more as was noted previously. This patient really needs to be on aggressive compression which we cannot do until we have safety certified by vascular studies. It would also be nice to rule out any significant congestive heart failure. We will try once again to get the vascular studies scheduled and completed. In the meantime, we are basically using a nonconstrictive bulky wrap to control the edema. However, I pointed out to the patient and to his quality control inspector heading that keeping his legs elevated is quite effective in reducing the volume of transudate. We will try to see him back in a week. /[id number] MD ELZA Mcgee III/DANIEL / ELZA / LETICIA /[id number] documented in this encounter Plan of Treatment Not on file documented as of this encounter Visit Diagnoses Not on filedocumented in this encounter Care Teams Head Of Strategy Relationship Specialty Start Date End Date Herminio Prather DO PCP - General Internal Medicine 05/02/24 documented as of this encounter
--- OUTSIDE RECORDS SUMMARY | 2024-11-02 09:29 | XMS_ITS | Encounter Summary ---
Author Organization [employer] Address [address] [place] [address] Care Team Providers Care Surtass Analyst Name Role Phone Herminio Prather DO Primary Care Provider [phone] Encounter Details Date Type Department Care Team (Late st Contact Info) Description 07/05/2020 Transcribed Document [facility] Family Medicine [facility] [place] [address] ProviderEugenio MD [facility] [place], [place] [address] Social History Tobacco Use Types Packs/Day Years Used Date Smoking Tobacco: Never Assessed Sex and Gender Information Value Date Recorded Sex Assigned at Male 11/07/2021 11:00 AM CDT Legal Sex Male 11:00 AM CDT Gender Identity Male 11/07/2021 11:00 AM CDT Sexual Orientation Not on file documented as of this encounter Miscellaneous Notes * Cerner Conversion Note - Eugenio ProviderMD - 07/05/2020 11:35 PM ENTERPRISE SALES EXECUTIVE ED Discharge Entered On: 07/05/2020 23:35 EST Performed On: 07/05/2020 23:35 EST by Alyce Call Body And Fender Mechanic Process Patient Disposition : Discharge Personal Belongings With Patient : Yes Patient Education Completed : Yes Teaching Evaluation : Verbalizes understanding IV Discontinued : Yes Nursing Documentation Completed : Yes Alyce Call Rn - 07/05/2020 23:35 EST ED Discharge Discharge To : Home with ambulatory/outpatient follow-up Mode Of Departure : Ambulatory Accompanied By : Unaccompanied Discharge Instructions Reviewed With, Opportunity For Questions Given : Patient Prescriptions Given to Patient : Yes Number of Prescriptions Given : 1 Alyce Call Rn - 07/05/2020 23:35 EST Electronically signed by [facility], [facility] Conversion Supervisor Winter Cerner at 08/29/2022 9:27 PM CDT documented in this encounter Plan of Treatment Not on file documented as of this encounter Visit Diagnoses Not on filedocumented in this encounter Care Teams Surtass Analyst Relationship Specialty Start Date End Date Herminio Prather DO PCP - General Internal Medicine 05/02/24 documented as of this encounter
--- OUTSIDE RECORDS SUMMARY | 2024-11-02 09:29 | XMS_ITS | Encounter Summary ---
Author Organization [employer] Address [address] [place] [address] Care Team Providers Care Matrix Plater Name Role Phone Herminio Prather DO Primary Care Provider [phone] [phone] Encounter Details Date Type Department Care Team (Late st Contact Info) Description 08/25/2018 Transcribed Document [facility] [place] [place] [facility] [address] ProviderEugenio MD [facility] [place] [address] Social History Tobacco Use Types [...] Conversion Note - Eugenio ProviderMD - 08/25/2018 3:28 PM CDT Patient: YASIR HERNANDEZ Age: 53 years Sex: Male : 1965 Associated Diagnoses: None Author: DAVID HOOD, PharmD, BCPS 53yo male with sepsis secondary to likely UTI, starting on abx. Rx asked to follow for vancomycin dosing. CUrrent ABx 1. Vancomycin per RX 2. Aztreonam 2g IV q8h 3. Metronidazole 500mg IV q8h Vitals Signs (last 24 hrs) Last Charted Minimum Maximum Temp 98.2 (AUG 25 13:36) 98.2 (AUG 25 13:36) 98.2 (AUG 25 13:36) Periph HR 101 (AUG 25 13:36) 101 (AUG 25 13:36) 101 (AUG 25 13:36) Resp Rate H 24 (AUG 25 13:36) H 24 (AUG 25 13:36) H 24 (AUG 25 13:36) SBP 133 (AUG 25 13:36) 133 (AUG 25 13:36) 133 (AUG 25 13:36) DBP 73 (AUG 25 13:36) 73 (AUG 25 13:36) 73 (AUG 25 13:36) SpO2 95 (AUG 25 13:36) 95 (AUG 25 13:36) 95 (AUG 25 13:36) Labs: Labs (Last four charted values) WBC H 12.4 (AUG 25) HB 13.9 (AUG 25) HCT 41.3 (AUG 25) Plt 270 (AUG 25) Na 138 (AUG 25) K 4.1 (AUG 25) Cl 102 (AUG 25) CO2 26 (AUG 25) BUN 13 (AUG 25) Cr H 1.40 (AUG 25) Glu R H 138 (AUG 25) Ca 8.5 (AUG 25) Lactic 1.6 (AUG 25) PT 10.3 (AUG 25) INR 1.0 (AUG 25) PTT 28.2 (AUG 25) AST 17 (AUG 25) ALT L 15 (AUG 25) ALK P 65 (AUG 25) T Bili 0.7 (AUG 25) PTN 7.3 (AUG 25) ALB L 3.3 (AUG 25) I/O - New admit C/x -NGTD wt. 136kg Est CrCl = ~79ml/min/m2 A/P 1. based upon age, wt, and renal function will start Vancomycin 2g IV x 1 dose then 1750mg IV q12h, to target a trough of 12-18 2. Trough level prior to dose on 08/27 @ 430, Hold if >21 3. Other meds adjusted appropriately at this time, will monitor for changes. Rx will follow, David Hood,Bev,BCPS,BCCCP #[id number] Electronically signed by [facility], [facility] Conversion Produce Inspector Cerner at 08/29/2022 9:31 PM CDT documented in this encounter Plan of Treatment Not on file documented as of this encounter Visit Diagnoses Not on filedocumented in this encounter Care Teams Matrix Plater Relationship Specialty Start Date End Date Herminio Prather DO PCP - General Internal Medicine 05/02/24 documented as of this encounter
--- OUTSIDE RECORDS SUMMARY | 2024-11-02 09:29 | XMS_ITS | Encounter Summary ---
Author Organization [employer] Address [address] [place] [address] Care Team Providers Care Inserter Promotional Item Name Role Phone Herminio Prather DO Primary Care Provider [phone] Encounter Details Date Type Department Care Team (Late st Contact Info) Description 08/25/2018 Transcribed Document [facility] [place] [address] [place] [address] ProviderEugenio MD [address] [place], [place] [id number] Social History Tobacco Use Types Packs/Day Years [...] ProviderMD - 08/25/2018 12:34 PM CDT ED Assessment Entered On: 08/25/2018 14:22 EDT Performed On: 08/25/2018 14:00 EDT by Jaqueline Chacon, MACHINE SAND MIXER Quick Look Assessment Level of Consciousness : Alert, Awake Affect/Behavior : Appropriate, Calm, Cooperative Orientation : Oriented x 4 Skin Temperature : Warm Skin Description : Dry Jaqueline Chacon RN - 08/25/2018 14:22 EDT ED General-Functional Assess Information Obtained From : Patient Communication Barrier : None Primary Language : Tuvaluan Any Spiritual/Cultural Needs or Requests : No Currently in Unsafe Situation : No Jaqueline Chacon RN - 08/25/2018 14:22 EDT Social Habits Smoking Status : Never (less than 100 in lifetime; none in last 30 days) Smokeless Tobacco Status : Never Desires Tobacco Cessation Calc : 0 Jaqueline Chacon, RN - 08/25/2018 14:22 EDT Social History (As Of: 08/25/2018 14:22:50 EDT) Gastrointestinal ED Gastrointestinal Symptoms : Abdominal pain, Constipation, Nausea Jaqueline Chacon RN - 08/25/2018 14:22 EDT Genitourinary Assessment, ED Genitourinary Assessment WDL : WDL with exceptions Jaqueline Chacon RN - 08/25/2018 14:22 EDT documented in this encounter Plan of Treatment Not on file documented as of this encounter Visit Diagnoses Not on filedocumented in this encounter Care Teams Inserter Promotional Item Relationship Specialty Start Date End Date Herminio Prather DO PCP - General Internal Medicine 05/02/24 documented as of this encounter
== END 2024-10-29 23:59 | disposition home or self-care (01) ==
LOC: LAB.DROPOF 11-02 09:19
PROVIDERS: PCP Family Medicine; Visit Provider Family Medicine
DX: E55.9 Vitamin D deficiency, unspecified (principal); N18.31 Chronic kidney disease, stage 3a
CPT/HCPCS: 80053; 82306